=== PATIENT | male | born 1970 | race Caucasian/White ===

== ENCOUNTER → 2021-01-09 12:46 | Outpatient (REF) | payer MEDICAID, SELFPAY ==
--- NOTE | 2021-01-09 13:20 | CA_ITS ---
Transthoracic Echocardiogram Patient (Last, First, Middle): Yan Chi, Gender: Male Date of : 1970 Age: 50 Procedure Date: 01/09/2021 Procedure Type: Transthoracic Echocardiogram Location: OP Height: 172.72 cm Weight: 58.97 kg BSA: 1.70 m2 Heart Rate: bpm BP: 118 / 70 mmHg Sawsmith: HI Borden MD: Rachelle Smith DO Furnace Feeder: Juan Mayfield MD Symptoms: CHEST PAIN Study Quality: Good ECG Rhythm: Sinus Conclusions: - Normal study Findings Left Ventricle Normal left ventricular size, thickness, and systolic function. The visually estimated ejection fraction is between 60-65%. Spectral Doppler is indicative of a normal filling pattern. Peak global endocardial longitudinal strain is -17.7% which is within normal limits Right Ventricle Normal right ventricular cavity size and systolic function. Atria Both atria are normal in size. There is no evidence of interatrial shunt. Aortic Valve Normal aortic valve structure and function. There is no aortic valve stenosis. There is no aortic valve regurgitation. Mitral Valve Normal mitral valve structure and function. There is trace mitral valve regurgitation. There is no mitral valve stenosis. Pulmonic Valve The pulmonic valve is likely normal. Tricuspid Valve Normal tricuspid valve structure. There is trace tricuspid valve regurgitation. The right ventricular systolic pressure is normal. The right ventricular systolic pressure is 20 mmHg. Normal right atrial pressure. There is no evidence of pulmonary hypertension. Great Vessels All visible segments of the aorta are normal in size. The pulmonary artery was not well visualized. Venous The inferior vena cava is normal in size and collapses greater than 50% with inspiration. Pericardium/Pleural There is no evidence of pericardial effusion. Measurements 2D Linear Measurements IVSd: 0.92 0.6-0.9/0.6-1.0 cm LVIDd: 4.57 3.9-5.3/4.2-5.9 cm LVIDd Index: 2.69 2.4-3.2/2.2-3.1 cm/m2 LVIDs: 3.03 2.0-3.6 cm LVPWd: 0.76 0.7-1.1 cm Ao Root: 3.40 2.1-3.5 cm LA Diam: 3.00 2.7-3.8/3.0-4.0 cm LAIDs Index: 1.76 1.5-2.3 cm/m2 LV Mass: 154.40 67-162/88-224 g LV Mass Index: 90.82 43-95/49-115 g/m2 LVOT Diam: 2.20 3.0+(-)1.3 cm 2D Systolic Function EF 4C: 57.10 >55% EF 2C: 58.30 >55% EF BiP: 57.80 >55% Mitral Valve MV Pk E: 0.76 MV PK A: 0.54 MV Decel Time: 296.00 E/A: 1.40 E'Lateral: 12.80 E'Medial: 10.30 E/E' Med: 7.40 E/E' Lat: 6.00 PHT: 87.00 MVA PHT: 2.53 Decel Drew: 2.57 Aortic Valve AoV Pk Ryan: 1.23 AoV Mn Ryan: 0.83 AoV VTI: 0.27 AoV Pk Grad: 6.00 Aov Mn Grad: 3.00 WILFRED Cont.VTI: 3.02 LVOT LVOT Pk Ryan: 1.01 LVOT Mn Ryan: 0.70 LVOT VTI: 0.21 LVOT Pk Grad: 4.00 LVOT Mn Grad: 2.00 LVOT Diam: 2.20 LVOT Area: 3.80 Diastolic Function MV Pk E: 0.76 MV Pk A: 0.54 E/A: 1.40 E'Medial: 10.30 E/E' Med: 7.40 E' Laterial: 12.80 E/E' Lat: 6.00 Right Ventricle TAPSE (mm): 2.42 TVS' Ryan: 11.40 Tricuspid Valve TR Pk Ryan: 2.08 TR Pk Grad: 17.00 RA Press: 3.00 RVSP: 20.00 Great Vessels Aorta Ao Root-2D: 3.40 2.0-3.7 cm Ao Asc: 2.80 2.1-3.4 cm Ao Arch: 2.90 Updated in Other Vendor System with Status of Final Juan Mayfield MD electronically signed on 01/10/2021 6:12:27 PM with status of Final
== END ==
LOC: HO.CARD 12:46
PROVIDERS: PCP Family Medicine; Visit Provider Family Medicine
DX: R07.9 Chest pain, unspecified (principal); F17.200 Nicotine dependence, unspecified, uncomplicated
CPT/HCPCS: 93306

== ENCOUNTER → 2021-01-17 14:43 | Outpatient (BNVA) | payer MEDICAID, SELFPAY | PROVIDERS: PCP Family Medicine; Referring Provider Family Medicine; Visit Provider Internal Medicine Cardiovascular Disease | DX: R07.89 Other chest pain (principal) | CPT/HCPCS: 93005; 99202 ==

== ENCOUNTER 2021-01-19 11:30 | Emergency (ER) | payer MEDICAID, SELFPAY ==
--- NOTE | ~2021-01-19 | CT_ITS ---
EXAMINATION: CT ABDOMEN AND PELVIS WITHOUT CONTRAST CLINICAL INFORMATION: Renal colic. COMPARISON: CT scan of the abdomen and pelvis dated 07/29/2012. Abdominal ultrasound dated 06/28/2018 TECHNIQUE: Multidetector volumetric imaging was performed from the superior aspect of the liver through the pubic symphysis. Sagittal and coronal reformatted images were obtained on the technologist's workstation. This CT examination was performed using dose optimization techniques as appropriate, variously including the following: *Automated exposure control *Adjustment of mA and/or kV according to patient size (this includes techniques or standardized protocols for targeted exams where dose is matched to indication/reason for exam; i.e. extremities or head) *Use of iterative reconstruction technique DLP: 373 mGy-cm FINDINGS: LUNG BASES: The visualized lung bases are unremarkable. LIVER, GALLBLADDER, AND BILIARY TREE: The liver is normal in size, shape, and attenuation. There is a tiny calcified granuloma seen in subcapsular segment 4A of the liver, unchanged. No suspicious focal hepatic lesion or biliary ductal dilatation is present. The gallbladder is unremarkable with no evidence of radiopaque gallstones, gallbladder wall thickening, or obvious pericholecystic inflammatory changes. PANCREAS: Unremarkable. SPLEEN: Unremarkable. ADRENAL GLANDS: Unremarkable. KIDNEYS AND URETERS: The kidneys are normal in size, shape, and attenuation. As noted previously, there are at least 5 punctate 1 to 2 mm nonobstructing calcifications in the kidneys bilaterally with pixel attenuation values extending up to 114 Hounsfield units, similar to the previous exam. There is redevelopment of moderate hydronephrosis in the mid and lower left kidney with dilatation of the collecting system and hyperdense contents (attenuation values extending up to 57 Hounsfield units) seen, suspicious for hemorrhage into the collecting system. The appearance is now similar to an older study from 07/11/2012. Given the waxing and waning nature of these findings, other processes, such as hyperdense urothelial masses are felt to be less likely. The ureters bilaterally are decompressed and no ureteral calculi are seen. BLADDER: Unremarkable. GASTROINTESTINAL TRACT: Moderate sigmoid colonic diverticulosis. No evidence of acute diverticulitis. Small and large bowel loops decompressed. The appendix is unremarkable. ABDOMINAL WALL: No significant hernia is appreciated. LYMPH NODES: Normal. VASCULAR: Abdominal aorta normal in caliber with minimal atherosclerotic calcification seen.. PELVIC VISCERA: Prostate gland is enlarged and heterogeneous and impresses upon the bladder base. Seminal vesicles bilaterally are also symmetrically prominent. OSSEOUS STRUCTURES: Unremarkable. CT/CT abdomen pelvis wo con IMPRESSION: 1. Redevelopment of masslike hypodensities within the dilated mid and lower pole left renal collecting system. The appearance is similar to 2013 and raises the suspicion of intermittent hemorrhage into the collecting system. Close correlation with patient's history is requested. Urology evaluation with retrograde assessment of the upper tracts is recommended. 2. Multiple bilateral nonobstructing renal calculi. 3. Moderate sigmoid colonic diverticulosis. 4. Enlarged heterogeneous prostate gland.
[2021-01-19 11:51] VITALS: BP 114/71; PULSE 96; RESP 17; TEMP 36.8; O2SAT 99; BMI 21.2
--- NOTE | 2021-01-19 12:08 | ED.ABDPAIN ---
HPI - Abdominal Pain General Chief Complaint: Abdominal Pain Stated Complaint: constipation, urine dicoloration Time Seen by Provider: 01/19/21 12:04 Source: patient Mode of arrival: ambulatory Limitations: no limitations History of Present Illness HPI narrative: This is a 50 years old male presented to the emergency department with a chief complaint of abdominal pain and constipation MD elicited complaint: abdominal pain and other (contispaion) Pertinent past history: constipation Onset (ago): day(s) (3) Pain Consistency: constant Location: diffuse Quality: cramping Radiation: none Migration to: no migration Exacerbating factors: nothing Related Data Home Medications Medication Instructions Recorded Confirmed baclofen 10 mg tablet 10 mg PO BID 01/17/21 01/17/21 bupropion HCl 150 mg 24 hr tablet, 150 mg PO BEDTIME 01/17/21 01/17/21 extended release fluoxetine 40 mg capsule 40 mg PO BEDTIME 01/17/21 01/17/21 fluticasone propionate 50 spray INTRANASAL 01/17/21 01/17/21 mcg/actuation nasal spray,suspension risperidone 3 mg tablet 3 mg PO BEDTIME 01/17/21 01/17/21 Previous Rx's Medication Instructions Recorded docusate sodium 100 mg capsule 100 mg PO BID #30 cap 01/19/21 (Colace) oxycodone-acetaminophen 5 mg-325 1 tab PO TID PRN #10 tab 01/19/21 mg tablet (Percocet) Allergies Allergy/AdvReac Type Severity Reaction Status Date / Time No Known Allergies Allergy Verified 01/19/21 11:50 Review of Systems Review of Systems Yes all other systems are reviewed and are negative Constitutional: Reports no additional constitutional complaints Reports system reviewed and no additional complaints, except as documented Cardiovascular: Reports no additional cardiovascular complaints Gastrointestinal: Denies diarrhea Physical Exam Vital Signs: Vital Signs: Last Vital Signs Temp 98.2 F 01/19/21 11:51 Pulse 96 01/19/21 11:51 Resp 17 01/19/21 11:51 BP 114/71 01/19/21 11:51 Pulse Ox 99 01/19/21 11:51 Body Mass Index 21.2 Const: General: cooperative and anxious HENMT: Head: Yes normal to inspection Face and sinus: Yes normal facial exam Mouth: Normal oral and palatal mucosa present Throat: Yes posterior oropharynx normal Neck: Neck: Yes normal visual inspection and Yes full ROM Chest: Chest palpation & inspection: normal inspection of the chest and normal palpation of entire chest wall Resp: Effort & Inspection: normal respiratory effort Auscultation: clear to auscultation bilaterally Cardio: Jugular venous distension: no JVD Rate: regular rate Rhythm: regular rhythm GI: Inspection: Yes normal to inspection Palpation (GI): Soft to palpation, not firm and nontender Course Course Course Narrative: feeling better;ct scan mass like hypodensity left renal collecting system and multiple bilateral non obstructive stone Urine showed hematuria. We will d/c the pt with Urologist referral,he understand the importnce of follow up . I will give him 10 percocet as well for pain colace for constipation MDM - Abdominal Pain Lab Data Result diagrams: 01/19/21 12:04 01/19/21 12:04 Labs: Lab Results 01/19/21 01/19/21 01/19/21 Range/Units 12:04 12:04 12:55 WBC 7.6 (4.8-10.8) X10*3/uL RBC 5.02 (4.60-5.80) X10*6/uL Hgb 16.2 (14.0-18.0) g/dl Hct 48.6 (42-52) % MCV 96.8 (80-98) fL MCH 32.3 (27.0-33.0) pg MCHC 33.3 (31.0-36.0) g/dl RDW 12.0 (11.0-16.0) % Plt Count 290 (160-400) X10*3/uL MPV 9.3 L (9.4-12.4) fL Immature Gran % (Auto) 0.3 (0.0-0.4) % Neut % (Auto) 69.4 (45-73) % Lymph % (Auto) 13.9 L (20-40) % [place] % (Auto) 13.2 H (2-11) % Eos % (Auto) 1.8 (0-4) % Baso % (Auto) 1.4 (0-2) % Lymph # (Auto) 1.1 L (1.2-4.9) X10*3/uL [place] # (Auto) 1.0 (0.1-1.2) X10*3/uL Eos # (Auto) 0.1 (0.0-0.4) X10*3/uL Baso # (Auto) 0.1 (0.0-0.2) X10*3/uL Abs Immat Gran (auto) 0.02 (0.00-0.03) X10*3/uL Absolute Neuts (auto) 5.3 (2.0-8.3) X10*3/uL Absolute Nucleated RBC 0.000 (0.0-0.012) X10*3/uL Nucleated RBC % (auto) 0.0 (0.0-0.2) /100WBC Sodium 135 (135-145) mmol/L Potassium 5.2 H (3.3-5.1) mmol/L Chloride 104 (96-108) mmol/L Carbon Dioxide 22 (22-29) mmol/L Anion Gap 14 (12-20) BUN 9 (9-16) mg/dL Creatinine 1.01 (0.5-1.4) mg/dL Estim Creat Clear Calc 76.8 Estimated GFR > 60 Random Glucose 87 (60-115) mg/dL Calcium 9.3 (8.4-10.2) mg/dL Total Bilirubin 1.2 H (0.0-1.0) mg/dL AST 14 (5-37) U/L ALT 10 (0-40) U/L Alkaline Phosphatase 67 (39-117) U/L Total Protein 7.4 (6.5-8.0) g/dL Albumin 4.2 (3.5-5.0) g/dL Lipase 9 (8-78) U/L Urine Color YELLOW Urine Appearance HAZY Urine pH 6.5 (5.0-8.0) Ur Specific Sharon <= 1.005 (1.005-1.025) Urine Protein NEG (NEG-TRACE) MG/DL Urine Glucose (UA) NEG (NEG) MG/DL Urine Ketones NEG (NEG) MG/DL Urine Blood 3+ H (NEG) Urine Nitrite NEG (NEG) Ur Leukocyte Esterase NEG (NEG) Urine RBC 30-49 H (0) /HPF Urine WBC 0-2 (0-4) /HPF Ur Squamous Epith Cells TRACE /LPF Urine Bacteria NONE /LPF Imaging Data CT scan - abdomen: Radiologist's impression: GASTROINTESTINAL TRACT: Moderate sigmoid colonic diverticulosis. No evidence of acute diverticulitis. Small and large bowel loops decompressed. The appendix is unremarkable.? ABDOMINAL WALL: No significant hernia is appreciated.? LYMPH NODES: Normal. VASCULAR: Abdominal aorta normal in caliber with minimal atherosclerotic calcification seen.. PELVIC VISCERA: Prostate gland is enlarged and heterogeneous and impresses upon the bladder base. Seminal vesicles bilaterally are also symmetrically prominent.? OSSEOUS STRUCTURES: Unremarkable.? CT/CT abdomen pelvis wo con IMPRESSION: 1.? Redevelopment of masslike hypodensities within the dilated mid and lower pole left renal collecting system. The appearance is similar to 2013 and raises the suspicion of intermittent hemorrhage into the collecting system. Close correlation with patient's history is requested. Urology evaluation with retrograde assessment of the upper tracts is recommended. 2.? Multiple bilateral nonobstructing renal calculi. 3.? Moderate sigmoid colonic diverticulosis. 4.? Enlarged heterogeneous prostate gland. Discharge Plan Discharge Clinical Impression: Hematuria, Abdominal pain Patient Disposition: Home, Self-Care Instructions: Hematuria (ED) Additional Instructions: You need to follow-up with the urologist please call Thursday, the CT scan shows mass like lesion in the left renal collecting system and also urine showed blood, for this reason is very important that you follow-up with the urologist Prescriptions: New oxycodone-acetaminophen [Percocet] 5-325 mg tablet 1 tab PO TID PRN (Reason: pain) Qty: 10 RF: 0 docusate sodium [Colace] 100 mg capsule 100 mg PO BID Qty: 30 RF: 0 No Action bupropion HCl 150 mg tablet extended release 24 hr 150 mg PO BEDTIME RF: 0 risperidone 3 mg tablet 3 mg PO BEDTIME RF: 0 fluoxetine 40 mg capsule 40 mg PO BEDTIME RF: 0 fluticasone propionate 50 mcg/actuation spray,suspension intranasal RF: 0 baclofen 10 mg tablet 10 mg PO BID RF: 0 Referrals: Emeka Salmeron MD [Physician] - 2 days Interventions: ED Discharge Assessment Last Done: 01/19/21 14:34 Discharge Date/Time: 01/19/21 14:36 [facility] Past Medical History Source: unable to obtain Surgical History Hx of elbow surgery Family History Family History Father Prostate cancer Mother Cancer Social History Social History Advance Directives: No Advance Directives Information Provided: Yes
[2021-01-19 12:43] LABS: MANUAL DIFF FLAG NO
[2021-01-19 12:46] LABS: Basophils Absolute Auto 0.1 X10*3/uL (0.0-0.2); Basophils Percent Auto 1.4 % (0-2); Eosinophils Absolute Auto 0.1 X10*3/uL (0.0-0.4); Eosinophils Percent Auto 1.8 % (0-4); Hematocrit 48.6 % (42-52); Hemoglobin 16.2 g/dl (14.0-18.0); Imm Gran Abs Auto 0.02 X10*3/uL (0.00-0.03); Imm Gran Pct Auto 0.3 % (0.0-0.4); Lymphocytes Absolute Auto 1.1 X10*3/uL (1.2-4.9); Lymphocytes Percent Auto 13.9 % (20-40); Mean Corpuscular HGB Conc 33.3 g/dl (31.0-36.0); Mean Corpuscular Hemoglobin 32.3 pg (27.0-33.0); Mean Corpuscular Volume 96.8 fL (80-98); Mean Platelet Volume 9.3 fL (9.4-12.4); Monocytes Percent Auto 13.2 % (2-11); Neutrophils Absolute Auto 5.3 X10*3/uL (2.0-8.3); Neutrophils Percent Auto 69.4 % (45-73); Platelet Count 290 X10*3/uL (160-400); Red Blood Count 5.02 X10*6/uL (4.60-5.80); White Blood Count 7.6 X10*3/uL (4.8-10.8)
[2021-01-19 13:08] LABS: Appearance Urine HAZY; Color Urine YELLOW; Glucose Urine UA NEG (NEG); Leukocyte Esterase Urine NEG (NEG); Nitrite Urine NEG (NEG); PH 6.5 (5.0-8.0); Specific Gravity - Urine <= 1.005 (1.005-1.025); UACC Culture Trigger NO; Urine Blood 3+ (NEG); Urine Ketones NEG (NEG); Urine Protein NEG (NEG-TRACE)
[2021-01-19 13:22] LABS: RBC Urine 30-49 /HPF (0); Squamous Epithelial Cell Urine TRACE /LPF; WBC Urine 0-2 /HPF (0-4)
[2021-01-19 13:38] LABS: Alanine Aminotransferase 10 U/L (0-40); Albumin Level 4.2 g/dL (3.5-5.0); Alkaline Phosphatase 67 U/L (39-117); Anion Gap 14 (12-20); Aspartate Amino Transferase 14 U/L (5-37); Bilirubin Total 1.2 mg/dL (0.0-1.0); Blood Urea Nitrogen 9 mg/dL (9-16); Calcium 9.3 mg/dL (8.4-10.2); Carbon Dioxide 22 mmol/L (22-29); Chloride 104 mmol/L (96-108); Creatinine Clr Calc Pharmacy 76.8; Estimated Glomerular Filt Rate > 60; Glucose Random 87 mg/dL (60-115); Lipase 9 U/L (8-78); Potassium 5.2 mmol/L (3.3-5.1); Sodium 135 mmol/L (135-145); Total Protein 7.4 g/dL (6.5-8.0)
== END 2021-01-19 14:36 | disposition home or self-care (01) ==
PROVIDERS: Emergency Provider Emergency Medicine; PCP Family Medicine
DX: R31.9 Hematuria, unspecified (principal); R10.9 Unspecified abdominal pain; Z79.899 Other long term (current) drug therapy
CPT/HCPCS: 36415; 74176; 80053; 81001; 83690; 85025; 99284

== ENCOUNTER → 2021-01-25 14:18 | Outpatient (BNVA) | payer MEDICAID, SELFPAY | PROVIDERS: PCP Family Medicine; Visit Provider Urology | DX: R31.0 Gross hematuria (principal); Q27.34 Arteriovenous malformation of renal vessel | CPT/HCPCS: 99202 ==

== ENCOUNTER → 2021-03-19 12:29 | Outpatient (BNVA) | payer MEDICAID, SELFPAY | PROVIDERS: PCP Family Medicine; Visit Provider Urology | DX: R31.0 Gross hematuria (principal); Q27.34 Arteriovenous malformation of renal vessel | CPT/HCPCS: 99212 ==

== ENCOUNTER → 2021-05-17 09:39 | Outpatient (REF) | payer MEDICAID, SELFPAY ==
--- NOTE | 2021-05-17 09:42 | CA_ITS ---
Acquisition Time: 2021-05-17 09:50:51 Total Exercise Time: 00:07:40 Test Indications: CP, SOB Medications: SEE CHART Protocol: PRABHAKAR Max HR: 150 BPM 89% of Pred: 168 BPM Max BP: 158/062 mmHG Max Work Load: 9.5 METS Exercise stress test with exercise 7 min 40 sec of Prabhakar protocol, with mild to moderate sob, no chest discomfort, with isolated PAC, with normotensive response to exercise, without EKG changes meeting criteria for ischemia. Test reviewed with Dr Mayfield. Referred By: Juan Mayfield Overread By: NIDA BERUMEN
== END ==
LOC: HO.CARD 09:39
PROVIDERS: PCP Family Medicine; Visit Provider Internal Medicine Cardiovascular Disease
DX: R07.89 Other chest pain (principal)
CPT/HCPCS: 93017

== ENCOUNTER → 2021-06-25 11:14 | Outpatient (BNVA) | payer MEDICAID, SELFPAY | PROVIDERS: PCP Family Medicine; Visit Provider Urology | DX: Q27.34 Arteriovenous malformation of renal vessel (principal) | CPT/HCPCS: Q3014 ==

== ENCOUNTER → 2021-08-07 11:29 | Outpatient (BNVA) | payer MEDICAID, SELFPAY | PROVIDERS: PCP Family Medicine; Visit Provider Urology | DX: Z13.89 Encounter for screening for other disorder (principal) ==

== ENCOUNTER 2021-08-12 07:55 | Day surgery (SDC) | payer MEDICAID, SELFPAY ==
--- NOTE | 2021-08-09 10:18 | HO.ANESPROP2 ---
Documented by User: Mona Schneider NP 08/09/21 10:22 HPI - Anesthesia Eval Consult details Narrative: 50yo M for Cystoscopy, Ureteroroscopy, Retro, Laserwith possible stent Cardiac w/u for atypical chest pain 02/2021 negative. Likely musculoskeletal per Dr Mayfield [facility] [place] Active Problems Active Problems: All Active Problems (Updated 08/06/21 @ 13:21 by Kelsi Zavala, RN) Gross hematuria (Acute) Arteriovenous malformation of kidney (Acute) Past Medical History Medical History Atypical chest pain Back pain Bipolar disorder Depression GERD (gastroesophageal reflux disease) History of heroin abuse Hx of hepatitis C Smoker Family History Family History Father Prostate cancer Mother Cancer Surgical History Surgical History History of colonoscopy Hx of elbow surgery Hx of esophagogastroduodenoscopy Social History Social History Patient Tobacco Use Status: Current everyday Tobacco user Meds Allergies Allergy/AdvReac Type Severity Reaction Status Date / Time No Known Allergies Allergy Verified 08/07/21 11:34 Home Medications Medication Instructions Recorded Confirmed Last Taken Type baclofen 10 mg tablet 10 mg PO BID 01/17/21 08/06/21 Unknown History bupropion HCl 150 mg 24 hr tablet, 150 mg PO BEDTIME 01/17/21 08/06/21 Unknown History extended release fluoxetine 40 mg capsule 40 mg PO BEDTIME 01/17/21 08/06/21 Unknown History fluticasone propionate 50 spray INTRANASAL 01/17/21 01/17/21 Unknown History mcg/actuation nasal spray,suspension risperidone 3 mg tablet 3 mg PO BEDTIME 01/17/21 08/06/21 Unknown History famotidine 20 mg tablet 20 mg PO BID 06/25/21 08/06/21 Unknown History albuterol sulfate 90 mcg/actuation 2 puff INHALATION Q4-6H PRN 08/06/21 08/06/21 Unknown History aerosol inhaler (ProAir HFA) Exam Exam Date and Time: August 09, 2021 1018 Pertinent Lab Results Pertinent Lab Results: Laboratory Tests 01/19/21 01/19/21 12:04 12:04 WBC 7.6 Hgb 16.2 Hct 48.6 Plt Count 290 Sodium 135 Potassium 5.2 H Chloride 104 Carbon Dioxide 22 BUN 9 Creatinine 1.01 Narrative Narrative: EKG 02/2021 normal sinus rhythm with early repolarization otherwise normal EKG ECHO 12/2020 Conclusions: - Normal study ? Exercise Stress 04/2021 Protocol: [place] ? Max HR: 150 BPM? 89% of? Pred: 168 BPM Max BP: 158/062 mmHG Max Work Load: 9.5 METS ? Exercise stress test with exercise 7 min 40 sec of [place] protocol, with mild to moderate sob, no chest discomfort, with isolated PAC, with normotensive ?response to exercise, without EKG changes meeting criteria for ischemia. Test ?reviewed with Dr Mayfield. Assessment and Plan Assessment Anesthesia Assessment: Chart Reviewed Documented by User: Jesse Chaidez MD 08/12/21 16:51 PMFSH Past Medical History Medical History Atypical chest pain Back pain Bipolar disorder Depression GERD (gastroesophageal reflux disease) History of heroin abuse Hx of hepatitis C Smoker Family History Family History Father Prostate cancer Mother Cancer Family history of problems with anesthesia: No Surgical History Surgical History History of colonoscopy Hx of elbow surgery Hx of esophagogastroduodenoscopy History of Problems with Anesthesia: No Social History Social History Patient Tobacco Use Status: Current everyday Tobacco user Meds Allergies Allergy/AdvReac Type Severity Reaction Status Date / Time No Known Allergies Allergy Verified 08/07/21 11:34 Home Medications Medication Instructions Recorded Confirmed Last Taken Type baclofen 10 mg tablet 10 mg PO BID 01/17/21 08/06/21 Unknown History bupropion HCl 150 mg 24 hr tablet, 150 mg PO BEDTIME 01/17/21 08/06/21 Unknown History extended release fluoxetine 40 mg capsule 40 mg PO BEDTIME 01/17/21 08/06/21 Unknown History fluticasone propionate 50 spray INTRANASAL 01/17/21 01/17/21 Unknown History mcg/actuation nasal spray,suspension risperidone 3 mg tablet 3 mg PO BEDTIME 01/17/21 08/06/21 Unknown History famotidine 20 mg tablet 20 mg PO BID 06/25/21 08/06/21 Unknown History albuterol sulfate 90 mcg/actuation 2 puff INHALATION Q4-6H PRN 08/06/21 08/06/21 Unknown History aerosol inhaler (ProAir HFA) Exam Airway Mallampati Class: II TM Dist: >3cm Neck ROM: Full Loose/Missing/Broken Teeth: Yes (Multiple chipped , poor dentation ) Heart: S1 , S2 Lungs: b/l breath sounds Assessment and Plan Assessment Anesthesia Assessment: Anesthesia Plan Discussed Final Anesthetic Review Family History of Problems with Anesthesia: No History of Problems with Anesthesia: No NPO: Yes ASA Class: II Final Preanesthetic Review: Meds/Allgs Chart Reviewed, Consent Obtained/Reviewed and Anes Risks/Benef Reviewed Patient Risk: Intermediate Procedure Risk: Intermediate Anesthetic Plan Anesthetic Plan: GA Disposition: Standard PACU
[2021-08-12] VITALS (9 sets, daily range): BP systolic 95–134; BP diastolic 58–82; PULSE 72–84; RESP 14–18; TEMP 36.1–36.6; O2SAT 96–100; BMI 22.2
--- NOTE | ~2021-08-12 | FL_ITS ---
EXAMINATION: XR FLUOROSCOPY WITH IMAGES CLINICAL INFORMATION: Fluoroscopy and spot film during left retrograde and stent placement. COMPARISON: CT abdomen/pelvis 01/19/2021. TECHNIQUE: Fluoroscopy performed by Dr. Emeka Salmeron. Fluoroscopy time: 51.1 seconds DAP: 8.26 mGy Images: 1 FINDINGS: A single image shows the upper portion of a left ureteral stent. No contrast is present in the collecting system. FL/FL guidance in OR IMPRESSION: Fluoroscopy and a single spot film provided to Dr. Salmeron. Please see the operative report for complete details.
[2021-08-12] MEDS: Lactated Ringers 1,000 ML 100 ML IVCONT (09:28)
--- NOTE | 2021-08-12 11:22 | P.HPSUR_ITS ---
Pre-Procedural Eval Section A Date of Service: 08/12/21 The patient is an INPATIENT: No Changes since office visit: No Cold of Flu in the past 2 weeks, No New Medical Problems, No Changes in Medication and No Patient answered all questions The History & Physical has been completed within 30 days and I have reviewed it.: Yes Section B Chief Complaint: kidney stone Details of Present Illness: left recurrent hydronephrosis Relevant Family History (Specify if Yes): No Relevant Social History: None Present Medications: see Short Stay Collaborative assessment Medical History: No relevant PMH History of Previous Operations: No relevant previous surgery Allergies: Allergies Allergy/AdvReac Type Severity Reaction Status Date / Time No Known Allergies Allergy Verified 08/07/21 11:34 Review of Systems Sugical H&P ROS: Negative: Constitution, Cardiovascular, Respiratory, Neurological, Psychiatric, Hem-Onc, Allergic/Immunologic, Gastrointestinal, Genitourinary, Musculoskeletal, Integumentary, Endocrine and Eyes/Ears/Nose/Throat Exam Surgical H&P Exam: Normal: HEENT, Normal: Heart, Normal: Lungs, Normal: Extrem ities, Normal: Abdomen, Normal: Skin and Normal: Neurological Plan Diagnosis/Plan: Unchanged ( Left retrograde with diagnostic ureteroscopy) I have reviewed the history and physical and performed a pertinent physical examination on my patient. No changes have occurred unless specified.
--- NOTE | 2021-08-12 12:43 | P.OP_ITS ---
Operative Note Operative Note Date of Service: 08/12/21 Narrative: PreOperative Diagnosis: left hematuria Post Operative Diagnosis: left nephrolithiasis Procedure: - cystoscopy, left retrograde - left dilatation of ureteric orifice under fluoroscopy - left ureteroscopy, laser lithotripsy, stone basketing - left stent placement Surgeon: Dr Emeka Salmeron Anesthesia: General Indications for procedure: hematuria Procedure: After informed consent was verified patient was brought to the operating placed in supine position. Anesthesia was administered per protocol. Patient was placed in modified dorsal lithotomy position and prepped and draped in a sterile fashion. Safety pause time-out and side of surgery confirmed. Antibiotics confirmed. 22 Croatian cystoscope was inserted per urethra. Bladder was normal in its entirety. Both ureteric orifices were in normal position. The ureteric orifice was cannulated and a retrograde examination was performed. No filling defect on the left side. A Sensor guidewire was placed up to the level of the renal pelvis under fluoroscopy. The rigid cystoscope was removed and the inner cannula of ureteric access sheath was used under fluoroscopy to dilate the ureteric orifice. The ureteric access sheath was placed and the inner cannula with access wire removed. The digital flexible ureteral scope was placed. Small stones found in the calyces. 272 nm laser used for stones. A 6 Croatian by 26 cm double-J stent was placed into the renal pelvis and bladder under a combination of fluoroscopy and direct visualization. The bladder was emptied. The patient tolerated the procedure well and was extubated in the operating room, and transferred in stable condition to the recovery area. Pathology: none Drains: 6 fr by 26cm double J
[2021-08-12] MEDS: Phenazopyridine HCL 100 MG TABLET PO (13:19)
[2021-08-12] MEDS: Acetaminophen 325 MG TABLET 650 MG PO (13:19)
[2021-08-12] MEDS: oxyCODONE HCl Immed Release 5 MG TABLET PO (13:23)
== END 2021-08-12 15:18 | disposition home or self-care (01) ==
PROVIDERS: PCP Family Medicine; Visit Provider Urology
PROC: (CPT 52356; principal; 2021-08-12 12:30)
DX: N20.0 Calculus of kidney (principal); N13.30 Unspecified hydronephrosis; R31.9 Hematuria, unspecified; Q27.34 Arteriovenous malformation of renal vessel; F31.9 Bipolar disorder, unspecified; K21.9 Gastro-esophageal reflux disease without esophagitis; Z79.899 Other long term (current) drug therapy; Z86.19 Personal history of other infectious and parasitic diseases; F17.200 Nicotine dependence, unspecified, uncomplicated; F11.11 Opioid abuse, in remission
CPT/HCPCS: 52356; 52352; C1758; C1769; C1894; C2617; J1100; J1956; J2250; J2405; J3010; Q9967

== ENCOUNTER → 2021-08-20 08:52 | Outpatient (BNVA) | payer MEDICAID, SELFPAY | PROVIDERS: PCP Family Medicine; Visit Provider Urology | DX: Z13.89 Encounter for screening for other disorder (principal) | CPT/HCPCS: 52310 ==

== ENCOUNTER 2021-09-02 13:07 | Day surgery (SDC) | payer MEDICAID, SELFPAY ==
[2021-09-02 13:59] VITALS: BP 119/56; RESP 18; TEMP 36.6; O2SAT 98; BMI 20.9
[2021-09-02 14:15] LABS: Amphetamine Screen Urine Not Detected (Not Detect); Barbiturates, Urine Not Detected (Not Detect); Benzodiazepines Screen Urine Not Detected (Not Detect); Cannabinoid Screen Urine Not Detected (Not Detect); Cocaine Screen Urine Not Detected (Not Detect); Fentanyl, urine Not Detected (Not Detect); Opiate Screen Urine Not Detected (Not Detect); Phencyclidine Screen Urine Not Detected (Not Detect)
--- NOTE | 2021-09-02 14:33 | PC.NURSE ---
report to chao bernal pt moved to pacu
--- NOTE | 2021-09-02 15:02 | HO.ANESPROP2 ---
HPI - Anesthesia Eval Consult details Narrative: Removal of left renal stent PMFSH Active Problems Active Problems: All Active Problems (Updated 08/14/21 @ 17:04 by Emeka Salmeron MD) Gross hematuria (Acute) Arteriovenous malformation of kidney (Acute) Nephrolithiasis (Acute) Past Medical History Medical History Atypical chest pain Back pain Bipolar disorder Depression GERD (gastroesophageal reflux disease) History of heroin abuse Hx of hepatitis C Smoker Family History Family History Father Prostate cancer Mother Cancer Family history of problems with anesthesia: No Surgical History Surgical History (Updated 09/02/21 @ 13:45 by Adriana Fortune RN) History of colonoscopy Hx of cystoscopy Hx of elbow surgery Hx of esophagogastroduodenoscopy History of Problems with Anesthesia: No Social History Social History Patient Tobacco Use Status: Current everyday Tobacco user Substance Use Type Other:: 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 Are you DNR?: No Advance Directives: No Advance Directives Information Provided: Yes Meds Allergies Allergy/AdvReac Type Severity Reaction Status Date / Time No Known Allergies Allergy Verified 08/20/21 08:58 Active Medications: Current Medications Lactated Ringer's (Lr) 1,000 mls @ 50 mls/hr IVCONT .Q20H [facility] Home Medications Medication Instructions Recorded Confirmed Last Taken Type baclofen 10 mg tablet 10 mg PO BID 01/17/21 08/06/21 Unknown History fluoxetine 40 mg capsule 40 mg PO BEDTIME 01/17/21 08/06/21 Unknown History fluticasone propionate 50 spray INTRANASAL 01/17/21 01/17/21 Unknown History mcg/actuation nasal spray,suspension risperidone 3 mg tablet 3 mg PO BEDTIME 01/17/21 08/06/21 Unknown History albuterol sulfate 90 mcg/actuation 2 puff INHALATION Q4-6H PRN 08/06/21 08/06/21 Unknown History aerosol inhaler (ProAir HFA) cetirizine 10 mg tablet 10 mg PO DAILY 08/20/21 Unknown History cholecalciferol (vitamin D3) 50 50 mcg PO DAILY 08/20/21 Unknown History mcg (2,000 unit) capsule Exam Exam Date and Time: September 02, 2021 1502 Height,Weight and Vital Signs: Height 5 ft 8 in Weight 62.596 kg Last Vital Signs Temp 97.8 F 09/02/21 13:59 Resp 18 09/02/21 13:59 BP 119/56 L 09/02/21 13:59 Pulse Ox 98 09/02/21 13:59 Pertinent Lab Results Pertinent Lab Results: Laboratory Tests 09/02/21 12:45 Urine Opiates Screen Not Detected Urine Fentanyl Screen Not Detected Ur Barbiturates Screen Not Detected Ur Phencyclidine Scrn Not Detected Ur Amphetamines Screen Not Detected U Benzodiazepines Scrn Not Detected Urine Cocaine Screen Not Detected U Marijuana (THC) Screen Not Detected Airway Mallampati Class: II TM Dist: >3cm Neck ROM: Full Loose/Missing/Broken Teeth: Yes (front upper teeth loose) Heart: rrr+[id number] Lungs: cta b/l Assessment and Plan Assessment Anesthesia Assessment: Anesthesia Plan Discussed and Chart Reviewed Final Anesthetic Review Family History of Problems with Anesthesia: No History of Problems with Anesthesia: No NPO: Yes ASA Class: III Final Preanesthetic Review: No Changes in Pt Med Stat, Meds/Allgs Chart Reviewed, Consent Obtained/Reviewed and Anes Risks/Benef Reviewed Patient Risk: Intermediate Procedure Risk: Low Assessment/Block/Sedation in SS: Assess/Block/Sedation-SS Anesthetic Plan Anesthetic Plan: MAC: and Agree w/ Assess. and Plan Disposition: Standard PACU
[2021-09-02] MEDS: Lactated Ringers 1,000 ML 50 ML IVCONT (15:03)
--- NOTE | 2021-09-02 15:40 | MHC.SHP ---
Pre-Procedural Eval Section A Date of Service: 09/02/21 The patient is an INPATIENT: No Changes since office visit: No Cold of Flu in the past 2 weeks, No New Medical Problems, No Changes in Medication and No Patient answered all questions The History & Physical has been completed within 30 days and I have reviewed it.: Yes Section B Chief Complaint: kidney stone Details of Present Illness: cystoscopy stent Allergies: Allergies Allergy/AdvReac Type Severity Reaction Status Date / Time No Known Allergies Allergy Verified 08/20/21 08:58 Plan I have reviewed the history and physical and performed a pertinent physical examination on my patient. No changes have occurred unless specified.
[2021-09-02] MEDS: levoFLOXacin 500 MG TABLET PO (15:42)
--- NOTE | 2021-09-02 16:06 | W.PM.OPN ---
Operative Note Operative Note Date of Service: 09/02/21 Narrative: PreOperative Diagnosis: indwelling left ureteric stent Post Operative Diagnosis: same Procedure: cystoscopy with removal of left indwelling stent Surgeon: Dr Emeka Salmeron Anesthesia: sedation Indications for procedure: unable to tolerate procedure in office. Procedure performed under sedation. Procedure: After informed consent was verified the patient was brought to the operating room and placed in a supine position. Anesthesia was administered per protocol. patient was prepped in a clean fashion. Flexible cystoscope inserted per urethra. Stent identified and grasped and removed without difficulty. he tolerated the procedure was transferred to the recovery area. Pathology: Drains:
[2021-09-02 16:12] VITALS: BP 102/74; PULSE 98; RESP 12; TEMP 36.3; O2SAT 98
[2021-09-02 16:27] VITALS: BP 115/62; PULSE 71; RESP 18; O2SAT 99
[2021-09-02 16:42] VITALS: BP 98/68; PULSE 90; RESP 16; O2SAT 98
[2021-09-02 16:57] VITALS: BP 108/70; PULSE 71; RESP 16; TEMP 36.1; O2SAT 97
== END 2021-09-02 17:11 | disposition home or self-care (01) ==
PROVIDERS: Anesthesiology; PCP Family Medicine; Visit Provider Urology
PROC: (CPT 52310; principal; 2021-09-02 15:10)
DX: N20.0 Calculus of kidney (principal); Z46.6 Encounter for fitting and adjustment of urinary device; F31.9 Bipolar disorder, unspecified; K21.9 Gastro-esophageal reflux disease without esophagitis; R07.89 Other chest pain; Z86.19 Personal history of other infectious and parasitic diseases; F11.11 Opioid abuse, in remission; F17.210 Nicotine dependence, cigarettes, uncomplicated
CPT/HCPCS: 52310; 80307; J2250

== ENCOUNTER 2021-11-05 08:44 | Outpatient (REF) | payer MEDICAID, SELFPAY ==
--- NOTE | ~2021-11-05 | US_ITS ---
EXAMINATION: US ABDOMEN COMPLETE CLINICAL INFORMATION: Intestinal malabsorption. COMPARISON: CT abdomen and pelvis without contrast dated 01/19/2021. Ultrasound abdomen complete dated 06/28/2018 and 12/23/2013. MR abdomen without and with contrast dated 08/12/2012. TECHNIQUE: Real-time imaging of the abdominal viscera. FINDINGS: PANCREAS: Normal. ABDOMINAL AORTA: The proximal, mid, and distal segments are normal in caliber. INFERIOR VENA CAVA: Visualized portions are normal. LIVER: Normal. The liver is normal in size. The liver contour is normal. Parenchymal echogenicity is normal. No focal hepatic lesion. There is no intrahepatic biliary duct dilatation seen. GALLBLADDER: Normal. The gallbladder is physiologically distended without evidence of stones, sludge, polyps, wall thickening or pericholecystic fluid. COMMON BILE DUCT: Normal in caliber measuring 0.56 cm in diameter. RIGHT KIDNEY: There is a 2 mm stone in the lower pole. No hydronephrosis or focal parenchymal lesions. The kidney measures 11.6 cm in maximum dimension. LEFT KIDNEY: Normal. No hydronephrosis. No renal calculi or focal parenchymal lesions. The kidney measures 10.4 cm in maximum dimension. SPLEEN: Normal. The spleen measures 8.1 cm in maximum dimension. FREE FLUID: None. US/US abdomen complete IMPRESSION: Small right renal stone otherwise unremarkable exam.
== END 2021-11-05 08:45 | disposition home or self-care (01) ==
LOC: HO.US 08:44
PROVIDERS: Visit Provider Family Medicine
DX: K90.9 Intestinal malabsorption, unspecified (principal)
CPT/HCPCS: 76700

== ENCOUNTER 2022-07-04 10:39 | Outpatient (REF) | payer MEDICAID, SELFPAY ==
[2022-07-04 14:25] LABS: Creatinine, mg/dL 116.78
[2022-07-04 14:41] LABS: Creatinine, mg/dL 119.91
[2022-07-04 14:50] LABS: Creatinine, 24Hr Urine 0.9 G/Day (1.0-2.0); Total Volume 24 Hour Urine 750 mL
[2022-07-04 14:52] LABS: Uric Acid, 24 Hr Urine 367.5 mg/Day (250-750)
[2022-07-05 16:53] LABS: Calcium, 24 Hr Urine 63 mg/24 h; Calcium/Creatinine Ratio 73 mg/g creat (30-210); Creatinine 24Hr Urine 0.86 g/24 h (0.50-2.15)
[2022-07-06 23:33] LABS: Prot Elec - Albumin 4.3 g/dL (3.8-4.8); Prot Elec - Alpha1 0.2 g/dL (0.2-0.3); Prot Elec - Alpha2 0.6 g/dL (0.5-0.9); Prot Elec - Beta 1 0.4 g/dL (0.4-0.6); Prot Elec - Beta 2 0.4 g/dL (0.2-0.5); Prot Elec - Gamma 1.1 g/dL (0.8-1.7)
[2022-07-10 06:59] LABS: 24hr Urine Total Volume 750 mL; Citric Acid, 24hr Urine 194 mg/24 h (100-1300); Citric Acid/Creat Ratio 24U 214 mg/g creat (60-660); Creatinine, 24U 0.86 g/24 h (0.50-2.15)
[2022-07-10 08:29] LABS: Oxalic Acid 24 Urine 10.5 mg/24 h (3.6-38.0)
[2022-07-11 11:48] LABS: Anti Nuclear Antibody Screen POSITIVE (NEGATIVE)
== END 2022-07-04 10:40 | disposition home or self-care (01) ==
LOC: HO.10HDL 10:39
PROVIDERS: Visit Provider Internal Medicine Hypertension Specialist
DX: N20.0 Calculus of kidney (principal); R31.9 Hematuria, unspecified
CPT/HCPCS: 36415; 82340; 82507; 83945; 84165; 84300; 84560; 86038; 86039

== ENCOUNTER 2022-10-07 08:25 | Day surgery (SDC) | payer MEDICAID, SELFPAY ==
[2022-10-07 06:12] VITALS: BMI 21.1
[2022-10-07 08:38] VITALS: BP 113/80; PULSE 78; RESP 17; TEMP 36.1; O2SAT 98
[2022-10-07] MEDS: Lactated Ringers 1,000 ML 100 ML IVCONT (09:00)
--- NOTE | 2022-10-07 09:21 | P.CONAN_ITS ---
[facility] Active Problems Active Problems: All Active Problems (Updated 08/14/21 @ 17:04 by Emeka Salmeron MD) Gross hematuria (Acute) Arteriovenous malformation of kidney (Acute) Nephrolithiasis (Acute) Past Medical History Medical History Atypical chest pain Back pain Bipolar disorder Depression GERD (gastroesophageal reflux disease) History of heroin abuse Hx of hepatitis C Smoker Family History Family History Father Prostate cancer Mother Cancer Family history of problems with anesthesia: No Surgical History Surgical History History of colonoscopy Hx of cystoscopy Hx of elbow surgery Hx of esophagogastroduodenoscopy History of Problems with Anesthesia: No Social History Social History Patient Tobacco Use Status: Current everyday Tobacco user Are you DNR?: No Advance Directives: No Advance Directives Information Provided: Yes Meds Allergies Allergy/AdvReac Type Severity Reaction Status Date / Time No Known Allergies Allergy Verified 12/10/21 10:52 Active Medications: Current Medications Lactated Ringer's (Lr) 1,000 mls @ 100 mls/hr IVCONT .Q10H [facility] Last Admin: 10/07/22 09:00 Dose: 100 mls/hr Home Medications Medication Instructions Recorded Confirmed Last Taken Type baclofen 10 mg tablet 10 mg PO BID 01/17/21 08/06/21 Unknown History fluoxetine 40 mg capsule 40 mg PO BEDTIME 01/17/21 08/06/21 Unknown History fluticasone propionate 50 spray intranasal 01/17/21 01/17/21 Unknown History mcg/actuation nasal spray,suspension risperidone 3 mg tablet 3 mg PO BEDTIME 01/17/21 08/06/21 Unknown History albuterol sulfate 90 mcg/actuation 2 puff inhalation Q4-6H PRN 08/06/21 08/06/21 Unknown History aerosol inhaler (ProAir HFA) Wheezing cetirizine 10 mg tablet 10 mg PO DAILY 08/20/21 Unknown History cholecalciferol (vitamin D3) 50 50 mcg PO DAILY 08/20/21 Unknown History mcg (2,000 unit) capsule Exam Exam Date and Time: October 07, 2022 0921 Height,Weight and Vital Signs: Height 5 ft 8 in Weight 63.049 kg Last Vital Signs Temp 97 F 10/07/22 08:38 Pulse 78 10/07/22 08:38 Resp 17 10/07/22 08:38 BP 113/80 10/07/22 08:38 Pulse Ox 98 10/07/22 08:38 O2 Del Method Room Air 10/07/22 08:38 Airway Mallampati Class: II TM Dist: >3cm Neck ROM: Full Assessment and Plan Assessment Anesthesia Assessment: Anesthesia Plan Discussed and Chart Reviewed Final Anesthetic Review Family History of Problems with Anesthesia: No History of Problems with Anesthesia: No NPO: Yes ASA Class: II Final Preanesthetic Review: No Changes in Pt Med Stat, Meds/Allgs Chart Reviewed, Consent Obtained/Reviewed and Anes Risks/Benef Reviewed Patient Risk: Low Procedure Risk: Low Anesthetic Plan Anesthetic Plan: MAC: Disposition: Standard PACU
--- NOTE | 2022-10-07 09:40 | MHC.SHP ---
Pre-Procedural Eval Section A Date of Service: 10/07/22 The patient is an INPATIENT: No Changes since office visit: No Cold of Flu in the past 2 weeks, No New Medical Problems, No Changes in Medication and No Patient answered all questions The History & Physical has been completed within 30 days and I have reviewed it.: Yes Section B Chief Complaint: screening Allergies: Allergies Allergy/AdvReac Type Severity Reaction Status Date / Time No Known Allergies Allergy Verified 12/10/21 10:52 Plan I have reviewed the history and physical and performed a pertinent physical examination on my patient. No changes have occurred unless specified. Time Spent With Patient Time: Total time managing care of this patient today ____ minutes.
[2022-10-07 10:18] VITALS: BP 110/47; PULSE 81; RESP 16; TEMP 36.3; O2SAT 96
--- NOTE | 2022-10-07 10:23 | PM.OP ---
Brief Operative Note Date of Service: 10/07/22 Pre-op diagnosis: screening Post-op diagnosis: same Procedure: colonoscopy Surgeon: Eugenio Hays Anesthesia: MAC Was an Personnel Security Assistant used for this Procedure?: No Estimated blood loss (mL): 0 Pathology: other Condition: stable Disposition: PACU
[2022-10-07 10:33] VITALS: BP 123/82; PULSE 62; RESP 18; TEMP 36.2; O2SAT 98
--- NOTE | 2022-10-07 10:41 | OP_ITS ---
DATE OF SERVICE: 10/07/2022 SURGEON: Eugenio Hays MD INDICATIONS: Colon cancer screening and prior history of adenomatous colon polyps. PREOPERATIVE DIAGNOSIS: POSTOPERATIVE DIAGNOSIS: PROCEDURE PERFORMED: Colonoscopy to the terminal ileum with snare polypectomy. ESTIMATED BLOOD LOSS: COMPLICATIONS: ANESTHESIA: Monitored anesthesia care. ASSISTANTS: SPECIMENS: DESCRIPTION OF PROCEDURE: A history and physical was performed. The risks and benefits of the procedure were explained to the patient and informed consent was obtained. The patient was placed in the left lateral decubitus position. A digital rectal exam was performed and was found to be normal. The Olympus pediatric video colonoscope was introduced into the rectum and advanced to the cecum. The cecum was identified by transillumination, palpation, and identification of ileocecal valve. Examination was performed. The scope was removed. He tolerated the procedure well and was returned to the recovery area in stable condition. FINDINGS: The terminal ileum was examined and appeared normal. The visualized colonic mucosa was normal. The quality of the prep was fair with some undigested food material in the sigmoid, which could not be completely suctioned. This was washed and suctioned as best possible. A single polyp measuring approximately 8 mm was identified at 60 cm and removed with a snare. The polyp was recovered via suction. There was moderate sigmoid diverticulosis and the sigmoid was somewhat tortuous. Retroflexed examination showed internal hemorrhoids. IMPRESSION: Colon polyp. RECOMMENDATION: Follow up the biopsy results. MD ALMA English/NAPOLEONL / [id number]
== END 2022-10-07 10:54 | disposition home or self-care (01) ==
PROVIDERS: PCP Family Medicine; Visit Provider Internal Medicine Gastroenterology
PROC: 0DJD8ZZ Inspection of Lower Intestinal Tract, Via Natural or Artificial Opening Endoscopic (ICD-10-PCS; CPT 45378; principal; 2022-10-07 09:30)
DX: Z12.11 Encounter for screening for malignant neoplasm of colon (principal); K63.5 Polyp of colon; K57.30 Diverticulosis of large intestine without perforation or abscess without bleeding; K63.89 Other specified diseases of intestine; K64.8 Other hemorrhoids; Z86.010 Personal history of colon polyps; K21.9 Gastro-esophageal reflux disease without esophagitis
CPT/HCPCS: 45385; 88305

== ENCOUNTER → 2023-06-05 11:08 | Outpatient (AMB) | payer MEDICAID, SELFPAY ==
--- NOTE | 2023-06-05 11:19 | A.OFFVIS_ITS ---
Intake Intake Visit Reasons: LDCT SD Allergies No Known Allergies Allergy (Verified 12/10/21 10:52) HPI HPI Comments History of Present Illness Details Yan is a pleasant 52 year old male, current smoker with a 33 PYH. Patient has been smoking since age 19 for 33 years at 1 ppd. Denies marijuana use. Denies exposure to chemicals or substances like asbestos. Denies second hand smoke exposure. Reports maternal grandmother, smoker, with lung cancer. Denies personal history of cancers. Denies chest CT in last year. Denies recent travel outside the [place]. Denies testing positive for COVID. Admits receiving COVID Vaccine. Denies fever, chills, chest pain, new cough, hemoptysis or unintentional weight loss. Lung Cancer Screening Questionnaire reviewed with patient by provider. Shared Decision Making Completed. Discussed in detail with patient, the risk versus benefit of LDCT screening. Patient in agreement of proceeding with scan. PFSH Medical History Atypical chest pain Back pain Bipolar disorder Depression GERD (gastroesophageal reflux disease) History of heroin abuse Hx of hepatitis C Smoker Surgical History History of colonoscopy Hx of cystoscopy Hx of elbow surgery Hx of esophagogastroduodenoscopy Family History Father Prostate cancer Mother Cancer Social History Patient Tobacco Use Status: Current everyday Tobacco user Assessment & Plan Assessment & Plan (1) Nicotine dependence, cigarettes, uncomplicated: Code(s): F17.210 - Nicotine dependence, cigarettes, uncomplicated Plan Shared decision-making visit completed today in office. This patient meets criteria for LDCT for lung cancer screening purposes and is asymptomatic. Offered smoking cessation. Patient has been scheduled for a low dose chest CT for screening purposes at [facility]. We discussed how the results will be obtained depending on CT findings. RADS 1 and RADS 2 will receive a letter with results and will follow up for annual LDCT. Patient informed they will be contacted at later date to schedule upcoming LDCT scan. RADS 3 and RADS 4 will receive a telephone call, or an office visit after reviewing case at our Lung Cancer Conference to determine when the next LDCT will be scheduled or further interventions that may be needed. Discussed importance of screening program and compliance with yearly LDCT scan as scheduled. Risks, benefits, and alternatives were discussed in detail and patient agrees to proceed. Risks discussed include but are not limited to: radiation exposure and possibility of additional intervention for benign disease. Benefits include detection of lung cancer at an early stage. A copy of today's visit and LDCT results will be sent to patient's PCP. Incidental findings on LDCT are PCP's responsibility. If there are incidental findings, our office will ensure that PCP office is aware of these findings. All questions were answered and patient is in agreement of plan. Coding Level of Care Code Lung Cancer Screening G0296 Diagnoses Nicotine dependence, cigarettes, uncomplicated F17.210
== END ==
PROVIDERS: PCP Family Medicine; Visit Provider Nurse Practitioner Family
DX: F17.210 Nicotine dependence, cigarettes, uncomplicated (principal)
CPT/HCPCS: G0296

== ENCOUNTER 2023-06-05 11:35 | Outpatient (REF) | payer MEDICAID, SELFPAY ==
--- NOTE | ~2023-06-05 | CT_ITS ---
EXAMINATION: CT CHEST SCREENING CLINICAL INFORMATION: Nicotine dependence. COMPARISON: None available. TECHNIQUE: Multidetector volumetric CT imaging of the chest is performed without contrast using low-dose technique. Additional 2D coronal and sagittal reformatted images and axial 3D maximum intensity projection (MIP) images are generated on the CT workstation. This CT examination was performed using dose optimization techniques as appropriate, variously including the following: *Automated exposure control *Adjustment of mA and/or kV according to patient size (this includes techniques or standardized protocols for targeted exams where dose is matched to indication/reason for exam; i.e. extremities or head) *Use of iterative reconstruction technique DLP: 50 mGy-cm FINDINGS: LUNGS: Emphysematous changes are present with bullous formation most marked at the apices. Biapical pleural-parenchymal scarring is seen, right greater than left. There is a 7 mm left apical ground-glass opacity (5:91). Some other scattered smaller micronodules, none larger than 3 mm, are seen including some areas of inspissated mucus within bronchi. Tran images of all have been saved. MEDIASTINUM: The mediastinum is normal. CORONARY ARTERY CALCIFICATION: None visualized on this study. PLEURA: There is no pleural effusion. No pleural mass or thickening. AXILLA: No lymphadenopathy. UPPER ABDOMEN: Unremarkable. OSSEOUS STRUCTURES: Unremarkable. CT/CT lung screening IMPRESSION: Emphysematous changes. Some small pulmonary micronodules including a 7 mm left apical ground-glass opacity. ASSESSMENT: Lung-RADS category 2: Benign RECOMMENDATION: Routine annual low-dose CT screening in 12 months.
== END 2023-06-05 11:36 | disposition home or self-care (01) ==
LOC: HO.CT 11:35
PROVIDERS: PCP Family Medicine; Visit Provider Nurse Practitioner Family
DX: F17.210 Nicotine dependence, cigarettes, uncomplicated (principal)
CPT/HCPCS: 71271; G0296

== ENCOUNTER 2023-12-11 11:13 | Outpatient (REF) | payer MEDICAID, SELFPAY ==
[2023-12-11 14:05] LABS: Hematocrit 48.6 % (42.0-52.0); Hemoglobin 16.9 g/dl (14.0-18.0); Mean Corpuscular HGB Conc 34.8 g/dl (31.0-36.0); Mean Corpuscular Hemoglobin 31.8 pg (27.0-33.0); Mean Corpuscular Volume 91.5 fL (80.0-98.0); Mean Platelet Volume 9.6 fL (9.4-12.4); Platelet Count 328 X10*3/uL (160-400); Red Blood Count 5.31 X10*6/uL (4.60-5.80); Red Cell Distribution Width 12.5 % (11.0-16.0); White Blood Count 6.3 X10*3/uL (4.8-10.8)
[2023-12-11 14:10] LABS: Estimated Average Glucose 97 mg/dL
[2023-12-11 14:24] LABS: Alanine Aminotransferase 10 U/L (0-40); Albumin Level 4.4 g/dL (3.5-5.0); Alkaline Phosphatase 79 U/L (39-117); Anion Gap 11 (12-20); Aspartate Amino Transferase 13 U/L (5-37); Bilirubin Direct 0.2 mg/dL (0.0-0.5); Bilirubin Total 0.9 mg/dL (0.0-1.0); Blood Urea Nitrogen 13 mg/dL (9-16); Calcium 9.5 mg/dL (8.4-10.2); Carbon Dioxide 24 mmol/L (22-29); Chloride 109 mmol/L (96-108); Cholesterol 156 mg/dL (<200); Estimated Glomerular Filt Rate > 60; Glucose Random 91 mg/dL (60-115); HDL Cholesterol 42 mg/dL (>40); LDL Cholesterol Calculated 103 mg/dL (<100); Potassium 4.2 mmol/L (3.3-5.1); Sodium 140 mmol/L (135-145); Total Protein 7.6 g/dL (6.5-8.0); Triglycerides 55 mg/dL (<150)
[2023-12-11 14:44] LABS: Free T4 (Free Thyroxine) 0.99 ng/dL (0.71-1.85); Thyroid Stimulating Hormone 0.09 uIU/mL (0.32-4.0); Vitamin D 25-OH Total 43.6 ng/mL (>30)
[2023-12-11 15:43] LABS: CT PCR NOT DETECTED (Not Detect.); NG PCR NOT DETECTED (Not Detect.)
[2023-12-14 08:40] LABS: HBS Num1 51.51 mIU/mL (0-7.99); HBsAGNum1 0.32 S/CO (0.00-0.99); HIV AB/AG Nonreactive (Nonreactive); HIV Num 1 0.05 S/CO (0.00-0.99); Hepatitis B Surface Antigen Negative (Negative); ~HepC Num1 12.88 S/CO (0.00-0.79); ~Hepatitis B Surface Antibody REACTIVE (Nonreactive); ~Hepatitis C Antibody Reactive (Nonreactive)
[2023-12-15 23:43] LABS: RPR Rapid Plasma Reagin NON-REACTIVE (NON-REACTIVE)
[2023-12-16 16:24] LABS: HCV Log PCR <1.18 NOT DETECTED Log IU/mL (NOT DETECTED); HepC Viral Load <15 NOT DETECTED IU/mL (NOT DETECTED)
== END 2023-12-11 11:14 | disposition home or self-care (01) ==
LOC: HO.HHCL 11:13
PROVIDERS: Visit Provider Family Medicine
DX: Z00.00 Encounter for general adult medical examination without abnormal findings (principal); N20.0 Calculus of kidney; K90.9 Intestinal malabsorption, unspecified; K21.9 Gastro-esophageal reflux disease without esophagitis; J30.9 Allergic rhinitis, unspecified; F17.200 Nicotine dependence, unspecified, uncomplicated; F39 Unspecified mood [affective] disorder
CPT/HCPCS: 36415; 80048; 80061; 80076; 82306; 83036; 84439; 84443; 85027; 86592; 86706; 86803; 87340; 87389; 87491; 87522; 87591

== ENCOUNTER 2024-01-20 10:52 | Emergency (ER) | payer MEDICAID, SELFPAY ==
--- NOTE | ~2024-01-20 | CT_ITS ---
EXAMINATION: CT ABDOMEN AND PELVIS WITHOUT CONTRAST CLINICAL INFORMATION: Right-sided pain. Extending to the right lower quadrant. COMPARISON: 01/19/2021 TECHNIQUE: Multidetector volumetric imaging was performed from the superior aspect of the liver through the pubic symphysis. Sagittal and coronal reformatted images were obtained on the technologist's workstation. This CT examination was performed using dose optimization techniques as appropriate, variously including the following: *Automated exposure control *Adjustment of mA and/or kV according to patient size (this includes techniques or standardized protocols for targeted exams where dose is matched to indication/reason for exam; i.e. extremities or head) *Use of iterative reconstruction technique DLP: 370 mGy-cm FINDINGS: LUNG BASES: The visualized lung bases are unremarkable. LIVER, GALLBLADDER, AND BILIARY TREE: The liver is enlarged. No focal mass. No intrahepatic biliary dilatation. The gallbladder is unremarkable with no evidence of radiopaque gallstones, gallbladder wall thickening, or obvious pericholecystic inflammatory changes. PANCREAS: Unremarkable. SPLEEN: Unremarkable. ADRENAL GLANDS: Unremarkable. KIDNEYS AND URETERS: Tiny punctate nephroliths both kidneys but no suspicious mass, hydronephrosis or perinephric collection. 3 mm probable hyperdense cyst lower left kidney is observed. BLADDER: Unremarkable. GASTROINTESTINAL TRACT: Normal. There is mural thickening and induration seen in the terminal ileum extending throughout the entire ileum which extends deep into the pelvis. This is suspicious for inflammatory bowel disease such as Crohn's disease. I do not see evidence of perforation or abscess collection or discrete fistula formation. The distal small bowel loops are partly distended suspicious for a partial obstruction on the basis of the narrowing and edematous process at the distal ileum.. The colon appears unremarkable as does the jejunum. Sigmoid diverticular disease incidentally is seen. There is no ascites. ABDOMINAL WALL: No significant hernia is appreciated. LYMPH NODES: Normal. VASCULAR: There are atherosclerotic but nonaneurysmal. PELVIC VISCERA: Prostate and seminal vesicles unremarkable. No ascites deep in the pelvis. OSSEOUS STRUCTURES: Gaseous disc degeneration at the lumbosacral junction. CT/CT abdomen pelvis wo IV con IMPRESSION: Diffuse bowel wall thickening and induration in the ileum and terminal ileum suspicious for Crohn's disease. Fleischner guidelines were followed. Electronically signed by: Stuart Sanz MD 01/20/2024 03:33 PM EDT RP
--- NOTE | 2024-01-20 11:05 | ED_ITS ---
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 Patient reports acute onset of lower abdominal pain with radiation to right upper quadrant which began yesterday morning. This did not wake him from his sleep. Reports pain is relieved with belching. Not exacerbated with eating. He has been able to tolerate a sandwich and soup last night. Reports associated diarrhea and nausea without vomiting. Reports 6 episodes of diarrhea yesterday. No episodes of vomiting or diarrhea today. He was not nauseous at present. Took one dose of Tylenol yesterday with minimal improvement. Abdominal pain is 4/10 at present. He also trialed Pepto-Bismol last night which improved symptoms. Denies recent travel outside [place] Denies consuming any abnormal food. No history of abdominal surgery. broadcast correspondent utilized throughout visit to communicate with patient. Related Data Home Medications ?Medication ?Instructions ?Recorded ?Confirmed baclofen 10 mg tablet 10 mg PO BID 01/17/21 08/06/21 fluoxetine 40 mg capsule 40 mg PO BEDTIME 01/17/21 08/06/21 fluticasone propionate 50 spray intranasal 01/17/21 01/17/21 mcg/actuation nasal spray,suspension risperidone 3 mg tablet 3 mg PO BEDTIME 01/17/21 08/06/21 albuterol sulfate 90 mcg/actuation 2 puff inhalation Q4-6H PRN 08/06/21 08/06/21 aerosol inhaler (ProAir HFA) Wheezing cetirizine 10 mg tablet 10 mg PO DAILY 08/20/21 cholecalciferol (vitamin D3) 50 50 mcg PO DAILY 08/20/21 mcg (2,000 unit) capsule Previous Rx's ?Medication ?Instructions ?Recorded docusate sodium 100 mg capsule 100 mg PO BID #30 caps 01/19/21 (Colace) tamsulosin 0.4 mg capsule 0.4 mg PO BEDTIME 14 days #14 caps 08/12/21 tramadol 50 mg tablet 50 mg PO Q6H PRN pain (scale score 08/14/21 1-3) 7 days #20 tabs ciprofloxacin HCl 500 mg tablet 500 mg PO BID 7 days #14 tabs 01/20/24 metronidazole 500 mg tablet 500 mg PO BID 7 days #14 tabs 01/20/24 prednisone 10 mg tablet See Taper PO DAILY #40 tabs 01/20/24 Allergies Allergy/AdvReac Type Severity Reaction Status Date / Time No Known Allergies Allergy Verified 01/20/24 11:09 Review of Systems Review of Systems Constitutional: No fever, chills, fatigue, night sweats, weight changes ENT/Mouth: No ear pain, hearing loss, nasal congestion, sinus pain, rhinorrhea, sore throat Eyes: No eye pain, swelling, redness, vision changes, discharge Cardio: No chest pain, palpitations, VELAZQUEZ, orthopnea, peripheral edema Pulm: No SOB, cough, sputum, wheezing, dyspnea, hemoptysis GI: No vomiting, hematemesis, constipation, hematochezia, melena, +abdominal pain, +nausea, +diarrhea : No irregular bleeding, dysuria, frequency, urgency, hesitancy, hematuria, flank pain, urinary flow changes, urinary incontinence or retention MSK: No back pain, neck pain, joint pain, myalgias Skin: No lesions, rashes Neuro: No weakness, numbness, paresthesias, LOC, dizziness, headache Psych: No anxiety/panic, depression, SI/HI, AH/VH All other systems reviewed and are negative. Yes all other systems are reviewed and are negative, unobtainable due to endotracheal tube, Unobtainable due to mental condition, Unobtainable due to mental status and Other PMFSH Past Medical History Attestation statement: The following information was validated with the patient. Source: old records reviewed and nursing notes reviewed Medical History Smoker History of heroin abuse Depression Back pain Hx of hepatitis C GERD (gastroesophageal reflux disease) Bipolar disorder Atypical chest pain Surgical History Hx of cystoscopy History of colonoscopy Hx of esophagogastroduodenoscopy Hx of elbow surgery Family History Family History Father Prostate cancer Mother Cancer Social History Social History Patient Tobacco Use Status: Current everyday Tobacco user Advance Directives: No Advance Directives Information Provided: Yes Physical Exam ED Vital Signs: Vital Signs - 24 hr 01/20/24 11:06 01/20/24 13:00 01/20/24 15:26 Temperature 98.0 F 98.1 F 98.3 F Pulse Rate 96 91 67 Respiratory Rate 16 16 18 Blood Pressure 139/80 133/83 132/83 Pulse Oximetry 99 98 98 Oxygen Delivery Method Room Air Room Air Room Air BMI result Body Mass Index 21.8 Vital signs stable, afebrile General: Well appearing, in no acute distress. Skin: Warm, dry, intact. No rashes or lesions. Head: Normocephalic, atraumatic. EENT: Hearing is intact b/l. Conjunctiva clear. PERRLA. EOM intact. Moist mucous membranes.? Neck: Supple without LAD Cardiac: Chest wall symmetric. RRR Lungs: Normal respiratory effort without accessory muscle use. CTA bilaterally. Abdomen: abdomen is soft, nondistended, mildly tender to palpation of the right lower quadrant without rebound tenderness or guarding. Normoactive bowel sounds x4. No CVAT bilaterally Back: No midline spinous or paraspinal tenderness. No step off deformity. Ext: Upper and lower extremities atraumatic, without tenderness, deformity, swelling or erythema. Full ROM throughout. Neuro: AOx3. Normal speech. CN 2-12 grossly intact. Psych: Appropriate mood and affect. Responds appropriately to questions. Course Course Course Narrative: This is an RME: Additional HPI, ROS, PE not included below will be deferred to primary provider. RME assessment and note performed by: Denisse Rodriguez PA-C This is a 3-ble[age]-yrg-male with a hx of hepatitic C, GERD, bipolar, depression, who presents to the ER with complaints of abdominal pain since yesterday. Pain is alleviated with belching. Also endorsing diarrhea and nausea, unable to tolerate PO secondary to nausea. Took peptobismol which helped. Abdomen is soft with TTP in the RLQ and right abdomen, no rebound or guarding. +chills, no fevers. Plan: Labs, UA, EKG Reevaluation(s) Reevaluation #1: 1347 -- CBC with slight leukocytosis to 11.9 with left shift. No anemia. H&H stable. Chemistry without acute electrolyte abnormality requiring intervention. No TEGAN. Total bili 1.3 however liver enzymes WNL. Troponin undetectable. Lipase WNL. Urine negative for infection or blood. > toradol ordered for pain control > ct abd pending 1559 -- on re-evaluation, patient reports complete resolution of pain after receiving Toradol. > CT abdomen/pelvis shows diffuse bowel wall thickening and induration in the ileum and terminal ileum suspicious for Crohn's disease. On further questioning, patient states he has never been diagnosed with Crohn's disease. Will send him home with prednisone taper, ciprofloxacin and Flagyl. Discussed the importance of following up with GI. Referral provided. educated on signs of bowel obstruction and when to return to the ED. Patient has remained stable throughout ED visit today. Discussed worrisome signs and symptoms and when to return to the ED. All questions answered at this time. Patient is agreeable with disposition and stable for discharge. Medical Decision Making Medical Decision Making [facility] Narrative: 53-year-old Serbian-speaking male with pmhx significant for hepatitis-C, GERD, bipolar disorder, depression presents to the ED today for evaluation of abdominal pain x 24 hours. Vital signs stable, afebrile. He is nontoxic- appearing and in no acute distress. Lying comfortably on the exam bed. On exam, abbdomen is soft, nondistended, mildly tender to palpation of the right lower quadrant without rebound tenderness or guarding. Normoactive bowel sounds x4. No CVAT bilaterally Differential diagnoses: appendicitis, diverticulitis, diverticulosis, gastroenteritis Abdominal exam without peritoneal signs. No evidence of acute abdomen at this time. Well appearing. Lower suspicion for acute hepatobiliary disease (including acute cholecystitis), acute infectious processes (pneumonia, hepatitis, pyelonephritis, testicular torsion), vascular catastrophe, bowel obstruction or viscus perforation, ovarian cyst/ rupture/ torsion, ectopic. Presentation not consistent with other acute, emergent causes of abdominal pain at this time. Plan for labs, UA, ekg, ct, pain control, and re-evaluation. Differential Diagnosis Differential Diagnoses: The differential diagnosis associated with the presentation includes As above Admission/Observation Not indicated Lab Data [facility] Lab Attestation statement: I reviewed the patient's lab results. as above. 01/20/24 11:28 01/20/24 11:28 Labs: Lab Results 01/20/24 01/20/24 Range/Units 11:28 13:26 WBC 11.9 H (4.8-10.8) X10*3/uL RBC 5.29 (4.60-5.80) X10*6/uL Hgb 16.9 (14.0-18.0) g/dl Hct 48.2 (42.0-52.0) % MCV 91.1 (80.0-98.0) fL MCH 31.9 (27.0-33.0) pg MCHC 35.1 (31.0-36.0) g/dl RDW 12.5 (11.0-16.0) % Plt Count 306 (160-400) X10*3/uL MPV 8.9 L (9.4-12.4) fL Immature Gran % (Auto) 0.3 (0.0-0.4) % Neut % (Auto) 80.3 H (45-73) % Lymph % (Auto) 9.8 L (20-40) % Wayne % (Auto) 7.6 (2-11) % Eos % (Auto) 1.5 (0-4) % Baso % (Auto) 0.5 (0-2) % Lymph # (Auto) 1.2 (1.2-4.9) X10*3/uL Wayne # (Auto) 0.9 (0.1-1.2) X10*3/uL Eos # (Auto) 0.2 (0.0-0.4) X10*3/uL Baso # (Auto) 0.1 (0.0-0.2) X10*3/uL Abs Immat Gran (auto) 0.03 (0.00-0.03) X10*3/uL Absolute Neuts (auto) 9.6 H (2.0-8.3) x10*3/uL Absolute Nucleated RBC 0.000 (0.0-0.012) X10*3/uL Nucleated RBC % (auto) 0.0 (0.0-0.2) /100WBC Sodium 139 (135-145) mmol/L Potassium 4.0 (3.3-5.1) mmol/L Chloride 107 (96-108) mmol/L Carbon Dioxide 27 (22-29) mmol/L Anion Gap 9 L (12-20) BUN 9 (9-16) mg/dL Creatinine 0.89 (0.5-1.4) mg/dL Estim Creat Clear Calc 86.2 Estimated GFR > 60 Random Glucose 94 (60-115) mg/dL Calcium 9.0 (8.4-10.2) mg/dL Magnesium 2.1 (1.6-2.6) mg/dL Total Bilirubin 1.3 H (0.0-1.0) mg/dL Direct Bilirubin 0.3 (0.0-0.5) mg/dL AST 19 (5-37) U/L ALT 12 (0-40) U/L Alkaline Phosphatase 88 (39-117) U/L Troponin I High Sens < 2.7 (<3.5-35.0) ng/L Total Protein 7.6 (6.5-8.0) g/dL Albumin 4.3 (3.5-5.0) g/dL Lipase 12 (8-78) U/L Urine Color Yellow Urine Appearance Clear Urine pH 6.0 (5.0-9.0) Ur Specific [place] 1.015 (1.005-1.025) Urine Protein Negative (Neg-Trace) mg/dL Urine Glucose (UA) Negative (Negative) mg/dL Urine Ketones Negative (Negative) mg/dL Urine Blood Negative (Negative) Urine Nitrite Negative (Negative) Ur Leukocyte Esterase Negative (Negative) Independent Interpretation I performed an independent interpretation of an: EKG and CT Scan Interpretation: EKG showing normal sinus rhythm with a rate of 86 beats per minute, QT 350, QTC 418, no acute ischemic changes or ST elevations. CT abdomen/ pelvis showing bowel wall thickening, agree with radiologist's interpretation. Radiology Impression Discussion of test interpretation with radiology: I have reviewed the radiologist's reading. Radiologist Impression: EXAMINATION: CT ABDOMEN AND PELVIS WITHOUT CONTRAST CLINICAL INFORMATION: Right-sided pain. Extending to the right lower quadrant. COMPARISON: 01/19/2021 TECHNIQUE: Multidetector volumetric imaging was performed from the superior aspect of the liver through the pubic symphysis. Sagittal and coronal reformatted images were obtained on the technologist's workstation. This CT examination was performed using dose optimization techniques as appropriate, variously including the following: *Automated exposure control *Adjustment of mA and/or kV according to patient size (this includes techniques or standardized protocols for targeted exams where dose is matched to indication/reason for exam; i.e. extremities or head) *Use of iterative reconstruction technique DLP: 370 mGy-cm FINDINGS: LUNG BASES: The visualized lung bases are unremarkable. LIVER, GALLBLADDER, AND BILIARY TREE: The liver is enlarged. No focal mass. No intrahepatic biliary dilatation. The gallbladder is unremarkable with no evidence of radiopaque gallstones, gallbladder wall thickening, or obvious pericholecystic inflammatory changes. PANCREAS: Unremarkable. SPLEEN: Unremarkable. ADRENAL GLANDS: Unremarkable. KIDNEYS AND URETERS: Tiny punctate nephroliths both kidneys but no suspicious mass, hydronephrosis or perinephric collection. 3 mm probable hyperdense cyst lower left kidney is observed. BLADDER: Unremarkable. GASTROINTESTINAL TRACT: Normal. There is mural thickening and induration seen in the terminal ileum extending throughout the entire ileum which extends deep into the pelvis. This is suspicious for inflammatory bowel disease such as Crohn's disease. I do not see evidence of perforation or abscess collection or discrete fistula formation. The distal small bowel loops are partly distended suspicious for a partial obstruction on the basis of the narrowing and edematous process at the distal ileum.. The colon appears unremarkable as does the jejunum. Sigmoid diverticular disease incidentally is seen. There is no ascites. ABDOMINAL WALL: No significant hernia is appreciated. LYMPH NODES: Normal. VASCULAR: There are atherosclerotic but nonaneurysmal. PELVIC VISCERA: Prostate and seminal vesicles unremarkable. No ascites deep in the pelvis. OSSEOUS STRUCTURES: Gaseous disc degeneration at the lumbosacral junction. CT/CT abdomen pelvis wo IV con IMPRESSION: Diffuse bowel wall thickening and induration in the ileum and terminal ileum suspicious for Crohn's disease. Fleischner guidelines were followed. Electronically signed by: Stuart Sanz MD 01/20/2024 03:33 PM EDT External Record Review External record reviewed: Inpatient record, Office record, Outpatient record, Prior outpatient labs, Prior outpatient radiology, Primary care record and Outside ED record Prescription Management I considered prescription management with: Pain Medication Social Determinants Patient?s care significantly limited by Social Determinants of Health including: Other Social Determinant of Health Medications Administered Discontinued Medications Generic Name Dose Route Start Last Admin Trade Name Freq PRN Reason Stop Dose Admin Ketorolac Tromethamine 30 mg 01/20/24 13:48 01/20/24 14:16 Ketorolac Tromethamine 30 Mg/Ml Vial IM 01/20/24 13:49 30 mg ONCE ONE Administration Critical Care Time Critical Care Time Critical Care Time: No Discharge Plan Discharge Clinical Impression: Abdominal pain, Bowel wall thickening, Crohn disease Patient Disposition: Home, Self-Care Instructions: Abdominal Pain (ED) Additional Instructions: Your blood work today is reassuring. Your urine is negative for infection. The CT scan of your abdomen shows : CT abdomen pelvis wo IV con IMPRESSION: Diffuse bowel wall thickening and induration in the ileum and terminal ileum suspicious for Crohn's disease. Prednisone as a steroid that has been sent to your pharmacy. Take this as directed: Take 4 tabs (40mg) for 3 days Take 3 tabs (30 mg) for 3 days Take 2 tabs (20mg) for 3 days Take 1 tab (10mg) for 3 days You have also been prescribed 2 different antibiotics to take over the next 7 days (ciprofloxacin and Flagyl). Take these as prescribed. Take these to completion and do not skip any doses. As discussed, you need to follow up with a GI doctor out patient. You have been provided with a referral. Call them to make an appointment. They will not call you. The most common complication is bowel obstruction. Please watch out for inability to pass gas or move your bowels. Return to the ED with new or worsening symptoms. In the case of an emergency call 911. Prescriptions: New prednisone 10 mg tablet See Taper PO DAILY Qty: 40 0RF Taper: Prednisone 40 mg daily for 3 Days and 0 Hour 30 mg daily for 3 Days and 0 Hour 20 mg daily for 3 Days and 0 Hour 10 mg daily for 3 Days and 0 Hour ciprofloxacin HCl 500 mg tablet 500 mg PO BID 7 Days Qty: 14 0RF metronidazole 500 mg tablet 500 mg PO BID 7 Days Qty: 14 0RF No Action tramadol 50 mg tablet 50 mg PO Q6H PRN (Reason: pain (scale score 1-3)) 7 Days Qty: 20 0RF albuterol sulfate [ProAir HFA] 90 mcg/actuation HFA aerosol inhaler 2 puff inhalation Q4-6H PRN (Reason: Wheezing) tamsulosin 0.4 mg capsule 0.4 mg PO BEDTIME 14 Days Qty: 14 0RF docusate sodium [Colace] 100 mg capsule 100 mg PO BID Qty: 30 0RF risperidone 3 mg tablet 3 mg PO BEDTIME fluoxetine 40 mg capsule 40 mg PO BEDTIME fluticasone propionate 50 mcg/actuation spray,suspension intranasal baclofen 10 mg tablet 10 mg PO BID cholecalciferol (vitamin D3) 50 mcg (2,000 unit) capsule 50 mcg PO DAILY cetirizine 10 mg tablet 10 mg PO DAILY Referrals: [facility] [Provider Group] - 5 days (CT abdomen pelvis wo IV con IMPRESSION: Diffuse bowel wall thickening and induration in the ileum and terminal ileum suspicious for Crohn's disease.) Print Language: Serbian
[2024-01-20 11:06] VITALS: BP 139/80; PULSE 96; RESP 16; TEMP 36.7; O2SAT 99; BMI 21.8
--- NOTE | 2024-01-20 11:09 | ECG_ITS ---
Test Reason : EPIGASTRIC PAIN Blood Pressure : / mmHG Vent. Rate : 086 BPM Atrial Rate : 086 BPM P-R Int : 136 ms QRS Dur : 080 ms QT Int : 350 ms P-R-T Axes : 077 031 058 degrees QTc Int : 418 ms Normal sinus rhythm Normal ECG When compared with ECG of 19-MAY-2011 09:46, No significant change was found Referred By: Denisse Rodriguez Electronically Signed By:Clyde Johnston
[2024-01-20 11:38] LABS: MANUAL DIFF FLAG NO
[2024-01-20 11:41] LABS: Basophils Absolute Auto 0.1 X10*3/uL (0.0-0.2); Basophils Percent Auto 0.5 % (0-2); Eosinophils Absolute Auto 0.2 X10*3/uL (0.0-0.4); Eosinophils Percent Auto 1.5 % (0-4); Hematocrit 48.2 % (42.0-52.0); Hemoglobin 16.9 g/dl (14.0-18.0); Imm Gran Abs Auto 0.03 X10*3/uL (0.00-0.03); Imm Gran Pct Auto 0.3 % (0.0-0.4); Lymphocytes Absolute Auto 1.2 X10*3/uL (1.2-4.9); Lymphocytes Percent Auto 9.8 % (20-40); Mean Corpuscular HGB Conc 35.1 g/dl (31.0-36.0); Mean Corpuscular Hemoglobin 31.9 pg (27.0-33.0); Mean Corpuscular Volume 91.1 fL (80.0-98.0); Mean Platelet Volume 8.9 fL (9.4-12.4); Monocytes Absolute Auto 0.9 X10*3/uL (0.1-1.2); Monocytes Percent Auto 7.6 % (2-11); Neutrophils Absolute Auto 9.6 x10*3/uL (2.0-8.3); Neutrophils Percent Auto 80.3 % (45-73); Platelet Count 306 X10*3/uL (160-400); Red Blood Count 5.29 X10*6/uL (4.60-5.80); Red Cell Distribution Width 12.5 % (11.0-16.0); White Blood Count 11.9 X10*3/uL (4.8-10.8)
[2024-01-20 11:56] LABS: Alanine Aminotransferase 12 U/L (0-40); Albumin Level 4.3 g/dL (3.5-5.0); Alkaline Phosphatase 88 U/L (39-117); Anion Gap 9 (12-20); Aspartate Amino Transferase 19 U/L (5-37); Bilirubin Direct 0.3 mg/dL (0.0-0.5); Bilirubin Total 1.3 mg/dL (0.0-1.0); Blood Urea Nitrogen 9 mg/dL (9-16); Carbon Dioxide 27 mmol/L (22-29); Chloride 107 mmol/L (96-108); Creatinine Clr Calc Pharmacy 86.2; Estimated Glomerular Filt Rate > 60; Glucose Random 94 mg/dL (60-115); Lipase 12 U/L (8-78); Magnesium 2.1 mg/dL (1.6-2.6); Sodium 139 mmol/L (135-145); Total Protein 7.6 g/dL (6.5-8.0)
--- NOTE | 2024-01-20 12:00 | MHC.EDTECH ---
Patient changed over, hourly round and vitals completed.and the call belt within patient reach.
[2024-01-20 12:18] LABS: Troponin-I High Sensitivity < 2.7 ng/L (<3.5-35.0)
[2024-01-20 13:00] VITALS: BP 133/83; PULSE 91; RESP 16; TEMP 36.7; O2SAT 98
[2024-01-20 13:32] LABS: Appearance Urine Clear; Color Urine Yellow; Glucose Urine UA Negative (Negative); Leukocyte Esterase Urine Negative (Negative); Nitrite Urine Negative (Negative); Specific Gravity - Urine 1.015 (1.005-1.025); Urine Blood Negative (Negative); Urine Ketones Negative (Negative); Urine Protein Negative (Neg-Trace)
[2024-01-20] MEDS: Ketorolac Tromethamine 30 MG/ML VIAL IM (14:16)
[2024-01-20 15:26] VITALS: BP 132/83; PULSE 67; RESP 18; TEMP 36.8; O2SAT 98
== END 2024-01-20 16:10 | disposition home or self-care (01) ==
PROVIDERS: Physician Assistant Medical; Emergency Provider Emergency Medicine
DX: K50.90 Crohn's disease, unspecified, without complications (principal); R10.31 Right lower quadrant pain; Z79.899 Other long term (current) drug therapy
CPT/HCPCS: 36415; 74176; 80048; 80076; 81003; 83690; 83735; 84484; 85025; 93005; 96372; 99284; J1885

== ENCOUNTER → 2024-01-20 11:09 | Outpatient (BNV) | payer MEDICAID, SELFPAY | PROVIDERS: Emergency Provider Emergency Medicine; Visit Provider Internal Medicine Cardiovascular Disease | DX: R10.13 Epigastric pain (principal) | CPT/HCPCS: 93010 ==

== ENCOUNTER 2024-01-28 10:14 | Emergency (ER) | payer MEDICAID, SELFPAY ==
--- NOTE | ~2024-01-28 | XR_ITS ---
EXAMINATION: XR ABDOMEN KUB CLINICAL INDICATION: Abdominal discomfort, constipation. COMPARISON: None available. TECHNIQUE: AP view of the abdomen. FINDINGS: The bowel gas pattern is normal with no evidence of ileus or obstruction. No unusual soft tissue calcifications are noted. No organomegaly. Lung bases are clear. Mildly elevated left hemidiaphragm. Heart size is normal. The bones are unremarkable. XR/XR KUB IMPRESSION: No acute findings. Normal examination. Electronically signed by: William Baez MD 01/28/2024 12:38 PM EDT
[2024-01-28 11:19] VITALS: BP 145/103; PULSE 80; RESP 16; TEMP 36.6; O2SAT 98; BMI 21.8
--- NOTE | 2024-01-28 11:19 | ED_ITS ---
HPI - General Adult General Chief complaint: Abdominal Pain Stated complaint: abd bloating-unable to use restroom Time Seen by Provider: 01/28/24 16:59 Source: patient Mode of arrival: ambulatory Limitations: language barrier (Taiwanese-speaking risk management manager utilized) History of Present Illness ED Provider: Jax Holland HPI narrative: Patient is a 53-year-old male who presents emergency department for evaluation. He reports that he was seen here a week ago for abdominal pain reports he was given multiple prescriptions to take. He reports due to an error in the prescriptions he did not start taking them until Thursday; 01/23/2024. He has yet to establish his outpatient follow-up appointment with gastroenterology. He reports that over the past 3 days he has not had a bowel movement, with today being the 3rd day. This made him nervous so he decided to seek re-evaluation. He denies associated fevers, chills, nausea, vomiting, inability to tolerate oral intake, or abdominal pain. He reports that he is still belching and passing gas without difficulty. He denies any recent hematochezia/melena Related Data Home Medications ?Medication ?Instructions ?Recorded ?Confirmed baclofen 10 mg tablet 10 mg PO BID 01/17/21 08/06/21 fluoxetine 40 mg capsule 40 mg PO BEDTIME 01/17/21 08/06/21 fluticasone propionate 50 spray intranasal 01/17/21 01/17/21 mcg/actuation nasal spray,suspension risperidone 3 mg tablet 3 mg PO BEDTIME 01/17/21 08/06/21 albuterol sulfate 90 mcg/actuation 2 puff inhalation Q4-6H PRN 08/06/21 08/06/21 aerosol inhaler (ProAir HFA) Wheezing cetirizine 10 mg tablet 10 mg PO DAILY 08/20/21 cholecalciferol (vitamin D3) 50 50 mcg PO DAILY 08/20/21 mcg (2,000 unit) capsule Previous Rx's ?Medication ?Instructions ?Recorded docusate sodium 100 mg capsule 100 mg PO BID #30 caps 01/19/21 (Colace) tamsulosin 0.4 mg capsule 0.4 mg PO BEDTIME 14 days #14 caps 08/12/21 tramadol 50 mg tablet 50 mg PO Q6H PRN pain (scale score 08/14/21 1-3) 7 days #20 tabs ciprofloxacin HCl 500 mg tablet 500 mg PO BID 7 days #14 tabs 01/20/24 metronidazole 500 mg tablet 500 mg PO BID 7 days #14 tabs 01/20/24 prednisone 10 mg tablet See Taper PO DAILY #40 tabs 01/20/24 Allergies Allergy/AdvReac Type Severity Reaction Status Date / Time No Known Allergies Allergy Verified 01/28/24 11:21 Review of Systems 2 Review of Systems: Yes all other systems are reviewed and are negative PMFSH Past Medical History Attestation statement: The following information was validated with the patient. Source: old records reviewed Medical History Smoker History of heroin abuse Depression Back pain Hx of hepatitis C GERD (gastroesophageal reflux disease) Bipolar disorder Atypical chest pain Surgical History Hx of cystoscopy History of colonoscopy Hx of esophagogastroduodenoscopy Hx of elbow surgery Family History Family History Father Prostate cancer Mother Cancer Social History Social History Alcohol intake: former Patient Tobacco Use Status: Current everyday Tobacco user Physical Exam ED Vital Signs: Vital Signs - 24 hr 01/28/24 11:19 01/28/24 16:36 01/28/24 16:59 Temperature 98 F 96.4 F L 97.8 F Pulse Rate 80 67 64 Respiratory Rate 16 16 18 Blood Pressure 145/103 H 146/85 H 149/83 H Pulse Oximetry 98 99 100 Oxygen Delivery Method Room Air Room Air Room Air BMI result Body Mass Index 21.8 Appearance: Alert.?Oriented to person, place and time. No acute distress.?Normal affect. Neck: Normal inspection.? Neck supple.?? CVS: Heart sounds normal. Normal heart rate and rhythm.? Pulses normal.?? Respiratory: No respiratory distress.? Lung sounds clear to auscultation bilaterally?? Abdomen: Soft and non-tender. Normoactive bowel sounds. No pulsatile mass.??No CVAT Skin: Skin warm and dry.? Normal skin color.? Extremities: No lower extremity edema.? Neuro: Moves all extremities spontaneously. Sensation intact bilaterally.Ambulates with normal steady gait. Course Course Course Narrative: RME, this is a rapid medical exam performed by Sandor Glover please refer to primary provider for complete H&P- 53-year-old primarily Taiwanese-speaking male presents for evaluation abdominal distention constipation. Patient was seen here a week ago yesterday and was diagnosed with IBS. He denies any abdominal pain, nausea vomiting but endorses ?belching. ? He reports he is still passing gas despite not having a bowel movement. Plan for labs, UA, KUB to start. Further workup as indicated Medical Decision Making Medical Decision Making [facility] Narrative: Patient is a 53-year-old male with past medical history of hepatitis-C, GERD, bipolar disorder, depression presenting to emergency department for re- evaluation as per HPI. He was seen in the emergency department 12/31/2023 with acute onset lower abdominal pain for 24 hours that was radiating to the right upper quadrant that alleviated with belching. He had a CT of the abdomen and pelvis which showed diffuse bowel wall thickening and induration in the ileum and terminal ileum suspicious for Crohn's disease but no reported history of Crohn's in the past. He was ultimately discharged home with a prednisone taper ciprofloxacin and Flagyl and advised to follow-up with gastroenterology. On evaluation today his abdominal examination is benign no tenderness rigidity or guarding, he has normoactive bowel sounds. He is tolerating oral intake without difficulty, passing flatus as well as belching. KUB is without obstructive bowel pattern, no severe constipation. Patient advised to continue medications as prescribed, increase daily fiber intake, follow-up with PCP/gastroenterology. All questions answered Differential Diagnosis Differential Diagnoses: The differential diagnosis associated with the presentation includes (See narrative above) Admission/Observation Consideration of admission/observation: Escalation of care including admission/observation considered Lab Data [facility] Lab Attestation statement: I reviewed the patient's lab results. CBC reveals a mild leukocytosis of 11.5 consistent with prior, no anemia thrombocytopenia. Inflammatory markers are not elevated. No electrolyte derangement. LFTs and lipase within normal range. 01/28/24 11:32 01/28/24 11:32 Labs: Lab Results 01/28/24 Range/Units 11:32 WBC 11.5 H (4.8-10.8) X10*3/uL RBC 5.41 (4.60-5.80) X10*6/uL Hgb 16.9 (14.0-18.0) g/dl Hct 49.5 (42.0-52.0) % MCV 91.5 (80.0-98.0) fL MCH 31.2 (27.0-33.0) pg MCHC 34.1 (31.0-36.0) g/dl RDW 12.1 (11.0-16.0) % Plt Count 366 (160-400) X10*3/uL MPV 8.8 L (9.4-12.4) fL Immature Gran % (Auto) 0.3 (0.0-0.4) % Neut % (Auto) 70.1 (45-73) % Lymph % (Auto) 16.6 L (20-40) % Stewart % (Auto) 12.2 H (2-11) % Eos % (Auto) 0.3 (0-4) % Baso % (Auto) 0.5 (0-2) % Lymph # (Auto) 1.9 (1.2-4.9) X10*3/uL Stewart # (Auto) 1.4 H (0.1-1.2) X10*3/uL Eos # (Auto) 0.0 (0.0-0.4) X10*3/uL Baso # (Auto) 0.1 (0.0-0.2) X10*3/uL Abs Immat Gran (auto) 0.04 H (0.00-0.03) X10*3/uL Absolute Neuts (auto) 8.1 (2.0-8.3) x10*3/uL Absolute Nucleated RBC 0.000 (0.0-0.012) X10*3/uL Nucleated RBC % (auto) 0.0 (0.0-0.2) /100WBC ESR 2 (0-15) MM/HR Hold Purple Top SEE NOTE Sodium 140 (135-145) mmol/L Potassium 4.2 (3.3-5.1) mmol/L Chloride 106 (96-108) mmol/L Carbon Dioxide 28 (22-29) mmol/L Anion Gap 10 L (12-20) BUN 16 (9-16) mg/dL Creatinine 0.99 (0.5-1.4) mg/dL Estim Creat Clear Calc 77.5 Estimated GFR > 60 Random Glucose 95 (60-115) mg/dL Calcium 9.9 D (8.4-10.2) mg/dL Total Bilirubin 0.6 (0.0-1.0) mg/dL AST 19 (5-37) U/L ALT 19 (0-40) U/L Alkaline Phosphatase 74 (39-117) U/L C-Reactive Protein < 0.10 (< or = 0.50) mg/dL Total Protein 7.5 (6.5-8.0) g/dL Albumin 4.3 (3.5-5.0) g/dL Lipase 20 (8-78) U/L Independent Interpretation I performed an independent interpretation of an: Plain X-Ray Radiology Impression Discussion of test interpretation with radiology: I have reviewed the radiologist's reading. Radiologist Impression: XR/XR KUB IMPRESSION: No acute findings. Normal examination. External Record Review External record reviewed: Outpatient record Tests considered The following testing was considered but not selected: Abdominal examination benign, unlikely to have acute surgical abdomen, repeat CT imaging is deferred Prescription Management I considered prescription management with: Other (Continue taking antibiotics and prednisone taper as previously prescribed) Chronic Conditions Patient?s care impacted by: Other (See narrative above) Discharge Plan Discharge Clinical Impression: Constipation Patient Disposition: Home, Self-Care Instructions: High Fiber Diet (ED), Constipation (ED) Additional Instructions: As discussed continue taking your medications as previously prescribed, follow- up with PCP/gastroenterology. Be sure that you are drinking plenty of water throughout the day, increase daily fiber intake. Return to emergency department with any new or worsening symptoms or concerns this includes but is not limited to fevers, chills, nausea persistent vomiting, inability to tolerate oral intake, abdominal pain, bloody stools, black stools. Prescriptions: No Action tramadol 50 mg tablet 50 mg PO Q6H PRN (Reason: pain (scale score 1-3)) 7 Days Qty: 20 0RF albuterol sulfate [ProAir HFA] 90 mcg/actuation HFA aerosol inhaler 2 puff inhalation Q4-6H PRN (Reason: Wheezing) tamsulosin 0.4 mg capsule 0.4 mg PO BEDTIME 14 Days Qty: 14 0RF docusate sodium [Colace] 100 mg capsule 100 mg PO BID Qty: 30 0RF prednisone 10 mg tablet See Taper PO DAILY Qty: 40 0RF Taper: Prednisone 40 mg daily for 3 Days and 0 Hour 30 mg daily for 3 Days and 0 Hour 20 mg daily for 3 Days and 0 Hour 10 mg daily for 3 Days and 0 Hour ciprofloxacin HCl 500 mg tablet 500 mg PO BID 7 Days Qty: 14 0RF metronidazole 500 mg tablet 500 mg PO BID 7 Days Qty: 14 0RF risperidone 3 mg tablet 3 mg PO BEDTIME fluoxetine 40 mg capsule 40 mg PO BEDTIME fluticasone propionate 50 mcg/actuation spray,suspension intranasal baclofen 10 mg tablet 10 mg PO BID cholecalciferol (vitamin D3) 50 mcg (2,000 unit) capsule 50 mcg PO DAILY cetirizine 10 mg tablet 10 mg PO DAILY Referrals: Rachelle Smith DO [Primary Care Provider] - Laurie Reina MD [Physician] - (AD pain CT w/ Diffuse bowel wall thickening and induration in the ileum and terminal ileum suspicious for Crohn's disease.) Print Language: Taiwanese
[2024-01-28 11:36] LABS: MANUAL DIFF FLAG NO
[2024-01-28 11:38] LABS: Basophils Absolute Auto 0.1 X10*3/uL (0.0-0.2); Basophils Percent Auto 0.5 % (0-2); Eosinophils Percent Auto 0.3 % (0-4); Hematocrit 49.5 % (42.0-52.0); Hemoglobin 16.9 g/dl (14.0-18.0); Imm Gran Abs Auto 0.04 X10*3/uL (0.00-0.03); Imm Gran Pct Auto 0.3 % (0.0-0.4); Lymphocytes Absolute Auto 1.9 X10*3/uL (1.2-4.9); Lymphocytes Percent Auto 16.6 % (20-40); Mean Corpuscular HGB Conc 34.1 g/dl (31.0-36.0); Mean Corpuscular Hemoglobin 31.2 pg (27.0-33.0); Mean Corpuscular Volume 91.5 fL (80.0-98.0); Mean Platelet Volume 8.8 fL (9.4-12.4); Monocytes Absolute Auto 1.4 X10*3/uL (0.1-1.2); Monocytes Percent Auto 12.2 % (2-11); Neutrophils Absolute Auto 8.1 x10*3/uL (2.0-8.3); Neutrophils Percent Auto 70.1 % (45-73); Platelet Count 366 X10*3/uL (160-400); Red Blood Count 5.41 X10*6/uL (4.60-5.80); Red Cell Distribution Width 12.1 % (11.0-16.0); White Blood Count 11.5 X10*3/uL (4.8-10.8)
[2024-01-28 11:52] LABS: Alanine Aminotransferase 19 U/L (0-40); Albumin Level 4.3 g/dL (3.5-5.0); Alkaline Phosphatase 74 U/L (39-117); Anion Gap 10 (12-20); Aspartate Amino Transferase 19 U/L (5-37); Bilirubin Total 0.6 mg/dL (0.0-1.0); Blood Urea Nitrogen 16 mg/dL (9-16); C Reactive Protein < 0.10 mg/dL (< or = 0.50); Calcium 9.9 mg/dL (8.4-10.2); Carbon Dioxide 28 mmol/L (22-29); Chloride 106 mmol/L (96-108); Creatinine Clr Calc Pharmacy 77.5; Estimated Glomerular Filt Rate > 60; Glucose Random 95 mg/dL (60-115); Lipase 20 U/L (8-78); Potassium 4.2 mmol/L (3.3-5.1); Sodium 140 mmol/L (135-145); Total Protein 7.5 g/dL (6.5-8.0)
[2024-01-28 12:24] LABS: Erythrocyte Sedimentation Rate 2 MM/HR (0-15)
[2024-01-28 16:36] VITALS: BP 146/85; PULSE 67; RESP 16; TEMP 35.8; O2SAT 99
[2024-01-28 16:59] VITALS: BP 149/83; PULSE 64; RESP 18; TEMP 36.6; O2SAT 100
[2024-01-28 17:36] VITALS: BP 149/83; PULSE 64; RESP 18; TEMP 36.6; O2SAT 100
== END 2024-01-28 17:36 | disposition home or self-care (01) ==
PROVIDERS: Physician Assistant; Emergency Provider Emergency Medicine; PCP Family Medicine
DX: K59.00 Constipation, unspecified (principal); R10.9 Unspecified abdominal pain; Z79.899 Other long term (current) drug therapy; Z86.19 Personal history of other infectious and parasitic diseases
CPT/HCPCS: 36415; 74018; 80053; 83690; 85025; 85652; 86140; 99283; 99284

== ENCOUNTER → 2024-01-28 11:19 | Outpatient (BNV) | payer MEDICAID, SELFPAY | PROVIDERS: PCP Family Medicine; Visit Provider Radiology Diagnostic Radiology | DX: R10.9 Unspecified abdominal pain (principal) | CPT/HCPCS: 74018 ==

== ENCOUNTER 2024-03-11 07:24 | Day surgery (SDC) | payer MEDICAID, SELFPAY ==
[2024-03-09 10:48] VITALS: BMI 21.7
--- NOTE | 2024-03-10 09:19 | HO.ANESPROP2 ---
Documented by User: Mona Schneider NP 03/10/24 09:21 HPI - Anesthesia Eval Consult details Narrative: 53yo M for Colonoscopy PMFSH Active Problems Active Problems: All Active Problems Nicotine dependence, cigarettes, uncomplicated (Acute) Nephrolithiasis (Acute) Arteriovenous malformation of kidney (Acute) Gross hematuria (Acute) Past Medical History Medical History (Updated 03/09/24 @ 10:49 by Dominique Cazares RN) Smoker History of heroin abuse Depression Back pain Hx of hepatitis C GERD (gastroesophageal reflux disease) Bipolar disorder Atypical chest pain Family History Family History Father Prostate cancer Mother Cancer Family history of problems with anesthesia: No Surgical History Surgical History (Updated 03/09/24 @ 10:49 by Dominique Cazares RN) History of liver biopsy Hx of cystoscopy History of colonoscopy Hx of esophagogastroduodenoscopy Hx of elbow surgery History of Problems with Anesthesia: No Social History Social History (Updated 03/09/24 @ 10:50 by Dominique Cazares RN) Are you a primary care management coordinator to a significant other at home: No Do you presently have visiting nurse or other home services: No Alcohol intake: former Patient Tobacco Use Status: Current everyday Tobacco user Tobacco use type: Cigarette Cigarette Packs Per Day: 1 Cigarettes Per Day: 12 Use of substances other than those prescribed or required for medical reasons: No Have you been hit, kicked, punched, or otherwise hurt by someone within the past year? If so, by whom?: No Are you DNR?: No Advance Directives: No Advance Directives Information Provided: Yes Recently lost weight without trying: No Nutrition Risks: No Nutritional Risk Poor oral hygiene: No Meds Allergies Allergy/AdvReac Type Severity Reaction Status Date / Time No Known Allergies Allergy Verified 01/28/24 11:21 Home Medications ?Medication ?Instructions ?Recorded ?Confirmed ?Last Taken ?Type fluoxetine 40 mg capsule 40 mg PO BEDTIME 01/17/21 03/09/24 Unknown History fluticasone propionate 50 2 spray intranasal DAILY 01/17/21 03/09/24 Unknown History mcg/actuation nasal spray,suspension risperidone 3 mg tablet 3 mg PO BEDTIME 01/17/21 03/09/24 Unknown History cetirizine 10 mg tablet 10 mg PO DAILY 08/20/21 Unknown History cholecalciferol (vitamin D3) 50 50 mcg PO DAILY 08/20/21 Unknown History mcg (2,000 unit) capsule famotidine 20 mg tablet 20 mg PO DAILY 03/09/24 03/09/24 Unknown History Exam Height,Weight and Vital Signs: Height 5 ft 8 in Weight 64.864 kg Pertinent Lab Results Pertinent Lab Results: Laboratory Tests 01/28/24 11:32 WBC 11.5 H Hgb 16.9 Hct 49.5 Plt Count 366 Sodium 140 Potassium 4.2 Chloride 106 Carbon Dioxide 28 BUN 16 Creatinine 0.99 Narrative Narrative: EKG 12/2023 Vent. Rate : 086 BPM Atrial Rate : 086 BPM P-R Int : 136 ms QRS Dur : 080 ms QT Int : 350 ms P-R-T Axes : 077 031 058 degrees QTc Int : 418 ms Normal sinus rhythm Normal ECG When compared with ECG of 19-MAY-2011 09:46, No significant change was found Assessment and Plan Assessment Anesthesia Assessment: Chart Reviewed Final Anesthetic Review Family History of Problems with Anesthesia: No History of Problems with Anesthesia: No Documented by User: Sheela Waggoner MD 03/11/24 08:26 [facility] Past Medical History Medical History (Updated 03/09/24 @ 10:49 by Dominique Cazares RN) Smoker History of heroin abuse Depression Back pain Hx of hepatitis C GERD (gastroesophageal reflux disease) Bipolar disorder Atypical chest pain Family History Family History Father Prostate cancer Mother Cancer Surgical History Surgical History (Updated 03/09/24 @ 10:49 by Dominique Cazares RN) History of liver biopsy Hx of cystoscopy History of colonoscopy Hx of esophagogastroduodenoscopy Hx of elbow surgery Social History Social History (Updated 03/09/24 @ 10:50 by Dominique Cazares RN) Are you a primary care management coordinator to a significant other at home: No Do you presently have visiting nurse or other home services: No Alcohol intake: former Patient Tobacco Use Status: Current everyday Tobacco user Tobacco use type: Cigarette Cigarette Packs Per Day: 1 Cigarettes Per Day: 12 Use of substances other than those prescribed or required for medical reasons: No Have you been hit, kicked, punched, or otherwise hurt by someone within the past year? If so, by whom?: No Are you DNR?: No Advance Directives: No Advance Directives Information Provided: Yes Recently lost weight without trying: No Nutrition Risks: No Nutritional Risk Poor oral hygiene: No Meds Allergies Allergy/AdvReac Type Severity Reaction Status Date / Time No Known Allergies Allergy Verified 01/28/24 11:21 Home Medications ?Medication ?Instructions ?Recorded ?Confirmed ?Last Taken ?Type fluoxetine 40 mg capsule 40 mg PO BEDTIME 01/17/21 03/09/24 Unknown History fluticasone propionate 50 2 spray intranasal DAILY 01/17/21 03/09/24 Unknown History mcg/actuation nasal spray,suspension risperidone 3 mg tablet 3 mg PO BEDTIME 01/17/21 03/09/24 Unknown History cetirizine 10 mg tablet 10 mg PO DAILY 08/20/21 Unknown History cholecalciferol (vitamin D3) 50 50 mcg PO DAILY 08/20/21 Unknown History mcg (2,000 unit) capsule famotidine 20 mg tablet 20 mg PO DAILY 03/09/24 03/09/24 Unknown History Exam Airway Mallampati Class: II TM Dist: >3cm Neck ROM: Full Assessment and Plan Assessment Anesthesia Assessment: Anesthesia Plan Discussed Final Anesthetic Review NPO: Yes ASA Class: II Final Preanesthetic Review: No Changes in Pt Med Stat, Meds/Allgs Chart Reviewed, Consent Obtained/Reviewed, Anes Risks/Benef Reviewed and DNR Form (If Appl.) Patient Risk: Intermediate Procedure Risk: Low Anesthetic Plan Anesthetic Plan: TIVA Disposition: Standard PACU
--- OUTSIDE RECORDS SUMMARY | 2024-03-11 07:28 | XMS_ITS ---
Author Organization [facility] Address [address] [place] [address] Care Team Providers Care Belt Glass Sander Name Role Phone Rachelle Smith M.D. Primary Care Provider Marni vailable Eugenio Hays Jr [phone] RE[address]ON [address]IT abnormal ct scan GI tract Encounters Encounter Location Date Provider Diagnosis [facility] [address] [place] [phone] 03/11/2024 Eugenio Hays Jr PLAN OF TREATMENT Next Appt Details Provider Name:Eugenio thomas Jr, 03/11/2024 10:00:00 AM, [address] [place] [address], [phone],
--- OUTSIDE RECORDS SUMMARY | 2024-03-11 07:28 | XMS_ITS | Patient Health Record ---
Author Organization [facility] Address [address] [place] [address] Care Team Providers Care Pattern Storage Clerk Name Role Phone Rachelle Smith M.D. Primary Care Provider Marni vailable Eugenio Hays Jr Unavailable ALLERGIES No Known Allergies REASON FOR REFERRAL Referring Provider First Name Rachelle Referring Provider Last Name Sarah Referred Organization [facility] Referred Provider Eugenio Hays Jr Referred Address [address] [facility],[address],[place], [place],[address], Referred Provider Specialty Gastroentero logy General Notes Latonya Chanel 024 04:08:27 PM EST > requested a [facility] from [facility] for visit with Dr. Hays on 02-10-2024 Referral Priority Routine MEDICATIONS Medication SIG (Take, Route, Frequency, Duration) Notes Start Date End Date Status Flonase 50 MCG/ACT 2 spray in each nost ril Nasally Once a day Active risperiDONE 3 MG TAKE 1/2 TABLET BY M OUTH TWICE A DAY PLEASE TAKE HALF, 1.5 MG, TWICE A DAY Oral for 30 Active PROzac 20 MG 2 capsule in the mor becky Orally Once a day Active MiraLax (colon prep) 8.3 ounce ((238) grams mixed with Gatorade or Crystal Light orally begin at 5:00 p.m. the day before the procedure for 1 day 02/10/2024 Active Dulcolax (colon prep) 5 MG take at 3:00 p.m and 7:00p.m. Orally two tablets twice a day for one day for 1 day 02/10/2024 Active MiraLax (colon prep) 17 GM/SCOOP mixed with Gatorade or Crystal Light Orally begin at 5:00 p.m. the day before the procedure for 1 day 02/10/2024 Active Famotidine 20 MG 1 tablet at bedtime as needed Orally Once a day for 30 day(s) Active IMMUNIZATIONS Vaccine Route Administration Date Status Comme nts Influenza Unknown 06/09/2018 Refused Influenza Unknown 12/15/2018 Refused Influenza Unknown 09/10/2022 Refused Influenza Unknown 02/10/2024 Refused SOCIAL HISTORY Tobacco Use: Social History Observation Description Date Details (start date - stop date) Current Smoker NA - NA Sex Assigned At : Social History Observation Description Sex Assigned At Unknown Tobacco Use/Smoking Question Answer Notes Patient is a current smoker How often do you smoke cigarettes? every day How many cigarettes a day do you smoke? 11-20 How soon after you wake up d o you smoke your first cigarette? 6-30 minutes Are you interested in quitting? Thinking about q uitting Alcohol Screen Question Answer Notes Did you have a drink containing alcohol in the p ast year? No Points 0 Interpretation Negative PROBLEMS Problem Type ICD Code Onset Dates Problem Status W/U Status Risk SNOMED Code Notes Problem Epigastric pain (R10.13) Active confirmed 30403117 Problem Special screening for malignant neoplasms, colon (Z12.11) Active confirmed 518309952 Problem Personal history of colonic polyps (Z86.010) Active confirmed History of polyp of colon (situation) (080180738) Problem Abnormal CT scan, gastrointestinal tract (R93.3) Active confirmed 139898069 Problem Gastroesophageal reflux disease without esophagitis (K21.9) Active confirmed 827057400 Problem Gastroesophageal reflux disease with esophagitis without hemorrhage (K21.00) Active confirmed 193114025 VITAL SIGNS Temperature 98.2 degrees Fahrenheit 02/10/2024 Blood pressure diastolic 00 mm Hg 02/10/2024 Height 68 in 02/10/2024 Blood pressure systolic 000 mm Hg 02/10/2024 Weight 143 lbs 02/10/2024 BMI 21.74 kg/m2 02/10/2024 Encounters Encounter Location Date Provider Diagnosis [facility] [place] [facility] [address] [place], [place] [phone] 03/11/2024 Eugenio Hays [facility] [address] [place] [address] 02/10/2024 Eugenio Hays [address] Abnormal CT scan, gastrointestinal tract R93.3 [facility] [address] [place] [address] 02/10/2024 Eugenio Hays Jr ASSESSMENTS Encounter Date Diagnosis Assessment Notes Treatment Notes Treatment Clinical Notes 02/10/[address] scan, gastrointestinal tract (ICD-10 - R93.3) Colonoscopy material was printed PLAN OF TREATMENT Future Test Test Name Order Date UPPER GI ENDOSCOPY 12/24/2016 COLONOSCOPY 12/15/2018 COLONOSCOPY 09/10/2022 COLONOSCOPY 02/10/2024 Next Appt Details Provider Name:Eugenio thomas Jr, 03/11/2024 10:00:00 AM, [address] [place] [address] , [place], [place], [phone], Insurance Providers Payer Name Payer Address Payer Phone Subscriber Number Group Number Insured Name Patient Relationship to Insured Coverage Start Date Coverage End Date MEDICA[employer] OF [employer] [address] [place] [address] [id number] DANK VARGAS Self - patient is the insured MEDICAL (GENERAL) HISTORY Medical History History ICD Code Gastroesophageal reflux dise ase, EGD 02/13, no Palacios's esophagus or H. pylori hepatitis C, genotype one, s ustained response to treatment with interferon and ribavirin x48 weeks 2005 depression allergic rhinitis opiate dependence Colon polyps, colonoscopy 02/15 adenomat ous polyps, three-year followup Surgical History Surgery Date(Month/Year) right arm liver biopsy, consistent wit h chronic hepatitis C grade 2/4, stage 1- 2/4, normal hepatic iron index 04/02 Hospitalization History Reason Date(Month/Year) 2 hospital visits for abdominal pain.
--- OUTSIDE RECORDS SUMMARY | 2024-03-11 07:28 | XMS_ITS ---
Author Organization [facility] Address [address] [place] [address] Care Team Providers Care Switch Adjuster Name Role Phone Rachelle Smith M.D. Primary Care Provider Marni Eugenio Jeong Jr Unavailable ALLERGIES No Known Allergies REASON FOR VISIT Patient presents today for an abnormal ct scan MEDICATIONS Medication SIG (Take, Route, Frequency, Duration) [...] mor becky Orally Once a day Active Famotidine 20 MG 1 tablet at bedtime as needed Orally Once a day for 30 day(s) Active MiraLax (colon prep) 17 GM/SCOOP mixed with Gatorade or Crystal Light Orally begin at 5:00 p.m. the day before the procedure for 1 day 02/10/2024 Active IMMUNIZATIONS Vaccine Route Administration Date Status Comme nts Influenza Unknown 02/10/2024 Refused SOCIAL HISTORY Tobacco [...] W/U Status Risk SNOMED Code Notes Problem Abnormal CT scan, gastrointestinal tract (R93.3) Active confirmed [id number] VITAL SIGNS BMI 21.74 kg/m2 02/10/2024 Blood pressure systolic 000 mm Hg 02/10/20 24 Blood pressure diastolic 00 mm Hg 024 Height 68 in 02/10/2024 Temperature 98.2 degrees Fahrenheit 02/10/20 24 Weight 143 lbs 02/10/2024 Encounters Encounter Location Date Provider Diagnosis [facility] [address] [place] [address] 02/10/2024 Eugenio Hays Jr Abnormal CT scan, gastrointestinal tract R93.3 ASSESSMENTS Encounter Date Diagnosis Assessment Notes Treatment Notes Treatment Clinical Notes 02/10/[address] scan, gastrointestinal tract (ICD-10 - R93.3) Colonoscopy material was printed PLAN OF TREATMENT Medication Medication Name Sig Start Date Stop Date Notes MiraLax (colon prep) 17 GM/SCOOP mixed with Gatorade or Crystal Light Orally begin at 5:00 p.m. the day before the procedure for 1 day 02/10/2024 Treatment Notes Assessment Notes Abnormal CT scan, gastrointestinal tract Colonoscopy material was printed Future Test Test Name Order Date COLONOSCOPY 02/10/2024 Next Appt Details Provider Name:Eugenio thomas Jr, 03/11/2024 10:00:00 AM, [address] [place] [address] , [place], [place], [phone],
--- OUTSIDE RECORDS SUMMARY | 2024-03-11 07:28 | XMS_ITS ---
Author Organization [facility] Address [address] [place] [phone] Care Team Providers Care Price Accuracy Supervisor Name Role Phone Rachelle Smith M.D. Primary Care Provider Marni vailaEugenio Romo Jr REASON FOR VISIT bowel prep MEDICATIONS Medication SIG (Take, Route, Frequency, Duration) Notes Start Date End Date Status MiraLax (colon prep) 8.3 ounce ((238) grams mixed with Gatorade or Crystal Light orally begin at 5:00 p.m. the day before the procedure for 1 day 02/10/2024 Active Dulcolax (colon prep) 5 MG take at 3:00 p.m and 7:00p.m. Orally two tablets twice a day for one day for 1 day 02/10/2024 Active Encounters Encounter Location Date Provider Diagnosis [facility] [address] [place] [phone] 02/10/2024 Eugenio Hays Jr PLAN OF TREATMENT Medication Medication Name Sig Start Date Stop Date Notes MiraLax (colon prep) 8.3 oun ce ((238) grams mixed with Gatorade or Crystal Light orally begin at 5:00 p.m. the day before the procedure for 1 day 02/10/2024 Dulcolax (colon prep) 5 MG take at 3:00 p.m and 7:00p.m. Orally two tablets twice a day for one day for 1 day 02/10/2024 Next Appt Details Provider Name:Eugenio thomas Jr, 03/11/2024 10:00:00 AM, [address] [place] [address], [phone],
[2024-03-11 08:12] VITALS: BP 130/84; PULSE 76; RESP 14; TEMP 36.7; O2SAT 98; BMI 21.6
[2024-03-11] MEDS: Lactated Ringers 1,000 ML 100 ML IVCONT (08:46)
--- NOTE | 2024-03-11 08:49 | MHC.SHP ---
Pre-Procedural Eval Section A - 24 Hr Update-Section A only Date of Service: 03/11/24 Section B - Complete if H&P > 30 days Chief Complaint: Abnormal findings on diagnostic imaging Details of Present Illness: see H&P no changes Relevant Family History (Specify if Yes): No Relevant Social History: None Present Medications: see Short Stay Collaborative assessment Medical History: No relevant PMH History of Previous Operations: No relevant previous surgery Allergies: Allergies Allergy/AdvReac Type Severity Reaction Status Date / Time No Known Allergies Allergy Verified 01/28/24 11:21 Plan I have reviewed the history and physical and performed a pertinent physical examination on my patient. No changes have occurred unless specified. Time Spent With Patient Time: Total time managing care of this patient today ____ minutes.
[2024-03-11 09:30] VITALS: BP 93/53; PULSE 98; RESP 16; TEMP 37; O2SAT 98
[2024-03-11 09:45] VITALS: BP 98/56; PULSE 96; RESP 16; O2SAT 98
[2024-03-11 10:00] VITALS: BP 112/64; PULSE 74; RESP 16; TEMP 36.6; O2SAT 99
--- NOTE | 2024-03-11 10:35 | OP_ITS ---
DATE OF SERVICE: 03/11/2024 SURGEON: Eugenio Hays MD INDICATIONS: Abnormal CT scan of the GI tract PREOPERATIVE DIAGNOSIS: POSTOPERATIVE DIAGNOSIS: PROCEDURE PERFORMED: Colonoscopy to the terminal ileum with biopsy and snare polypectomy. ESTIMATED BLOOD LOSS: COMPLICATIONS: ANESTHESIA: Monitored anesthesia care. ASSISTANTS: SPECIMENS: DESCRIPTION OF PROCEDURE: A history and physical was performed. The risks and benefits of the procedure were explained to the patient. Informed consent was obtained. The patient was placed in the left lateral decubitus position. A digital rectal exam was performed and was found to be normal. The Olympus pediatric video colonoscope was introduced into the rectum and advanced to the cecum. The cecum was identified by transillumination, palpation, and identification of the ileocecal valve. Examination was performed. The scope was removed. He tolerated the procedure well and was returned to the recovery area in stable condition. FINDINGS: The terminal ileum was examined and appeared normal. There was no evidence of Crohn disease. Biopsies were obtained from the mucosa. The visualized colonic mucosa was within normal limits without evidence of masses or ulcers. A single polyp measuring less than 5 mm was identified at 45 cm from the anal verge. This was removed with a cold snare and recovered via suction and with the biopsy forceps. Random sigmoid biopsies were obtained. Retroflexed examination showed some small internal hemorrhoids. The quality of the prep was good. There was mild sigmoid diverticulosis. IMPRESSION: Colon polyp. RECOMMENDATION: Follow up the biopsy results. MD ALMA English/NAPOLEONL / [id number]
== END 2024-03-11 10:33 | disposition home or self-care (01) ==
PROVIDERS: PCP Family Medicine; Visit Provider Internal Medicine Gastroenterology
PROC: 0DJD8ZZ Inspection of Lower Intestinal Tract, Via Natural or Artificial Opening Endoscopic (ICD-10-PCS; CPT 45378; principal; 2024-03-11 09:10)
DX: R93.3 Abnormal findings on diagnostic imaging of other parts of digestive tract (principal); Z86.0101 Personal history of adenomatous and serrated colon polyps; D12.5 Benign neoplasm of sigmoid colon; K57.30 Diverticulosis of large intestine without perforation or abscess without bleeding; K64.8 Other hemorrhoids; B19.20 Unspecified viral hepatitis C without hepatic coma; K21.9 Gastro-esophageal reflux disease without esophagitis; J30.9 Allergic rhinitis, unspecified; F11.20 Opioid dependence, uncomplicated; F32.A Depression, unspecified; Z79.899 Other long term (current) drug therapy; F17.210 Nicotine dependence, cigarettes, uncomplicated; Z98.890 Other specified postprocedural states
CPT/HCPCS: 45385; 45380; 88305; J2003; J2250; J2704

== ENCOUNTER 2024-06-06 10:09 | Outpatient (REF) | payer MEDICAID, SELFPAY ==
--- NOTE | ~2024-06-06 | CT_ITS ---
CLINICAL HISTORY: F17.210 - Nicotine dependence, cigarettes, uncomplicated CT lung cancer screening (LDCT) Comparison: 06/05/2023 Technique: Axial CT images of the chest using low-dose technique. Referring provider counseled the patient on shared decision-making for LDCT screening. Additional counseling was provided on smoking cessation. Findings: Lung: No evidence of pneumonia or edema. No change in biapical scarring. No change in biapical ground-glass densities, including the 7 mm left apical ground-glass density (image 27). No new pulmonary opacities Coronary artery calcifications: None Limited upper abdomen: Unremarkable Other: None Impression: LungRADS 2 - Benign Appearance: Continue annual screening with low dose Chest CT in 12 months. ##L2# Category 1: Normal; continue annual screening Category 2: Benign appearance or behavior, continue annual screening Category 3: Probably benign, [address] recommended Category 4A: Suspicious, [address] recommended; may consider PET/CT Category 4B: Suspicious, Additional diagnostics and/or tissue sampling recommended Category 4X: Suspicious, Additional diagnostics and/or tissue sampling recommended Category 0: Recalls (incomplete screen due to Incomplete coverage, Noise, Respiratory motion, Expiration, Obscured by acute abnormality) This document has been electronically signed by: Elsy Snow MD on 06/07/2024 15:47:49
--- OUTSIDE RECORDS SUMMARY | 2024-06-06 11:18 | XMS_ITS | Clinical Summary ---
Author Organization [facility] Address [address] [place] [address] Phone Care Team Providers Care Shank Threader Name Role Phone Rachelle Smith DO Primary Care Provider Romelia ildigeo Allergies No known active allergies Medications FLUoxetine (PROzac) 20 MG capsule Take 20 mg by mouth 1 (one) time each day Active cetirizine (ZyrTEC) 10 MG tablet Take 10 mg by mouth 1 (one) time each day Active risperiDONE (RisperDAL) 3 MG tablet Take 3 mg by mouth in the morning and 3 mg in the evening. Active buPROPion XL (WELLBUTRIN XL) 150 MG 24 hr tablet TOME ROSHNI TABLETA TODOS LOS D 06/21/2022 Active Active Problems Problem Noted Date Diagnosed Date Renal stone 02/03/2023 Social History Tobacco Use Types Packs/Day Years Used Date Smoking Tobacco: Former Cigarettes Smokeless Tobacco: Never Tobacco Cessation:Counseling Given: Not Answered Alcohol Use Standard Drinks/Week Comments Yes 0 (1 standard drink = 0.6 oz pur e alcohol) Sex and Gender Information Value Date Recorded Sex Assigned at Not on file Legal Sex Male 4:44 PM EST Gender Identity Not on file Sexual Orientation Not on file Last Filed Vital Signs Vital Sign Reading Time Taken Comments Blood Pressure 101/60 02/03/2023 3:19 PM EST Pulse 100 02/03/2023 3:19 PM EST Temperature - - Respiratory Rate - - Oxygen Saturation 97% 02/03/2023 3:19 PM EST Inhaled Oxygen Concentration - - Weight 65 kg (143 lb 6.4 oz) 02/03/2023 3:19 PM EST Height - - Body Mass Index - - Plan of Treatment Health Maintenance Due Date Last Done Comments Hepatitis B Vaccine (1 of 3 - 19+ 3-dose series) 10/25 Pneumococcal Vaccine: Pediat rics (0 to 5 Years) and At-Risk Patients (6 to 64 Years) (2 of 2 - PCV) 04/21/2015 04/21/2014 Colorectal Cancer Screening: Annual FOBT 2017 Colorectal Cancer Screening: Colonoscopy 2017 Colorectal Cancer Screening: Sigmoidoscopy 2017 Influenza Vaccine (#1) 2023 Insurance [place] Care Teams Shank Threader Relationship Specialty Start Date End Date Rachelle Smith DO PCP - General Family Medicine 02/12/22
--- OUTSIDE RECORDS SUMMARY | 2024-06-06 11:19 | XMS_ITS | Clinical Summary ---
Author Organization [facility] Address [address] [place] [address] Care Team Providers Care Pressroom Worker Name Role Phone Rachelle Smith DO Primary Care Provider [phone] Allergies Active Allergy Reactions Criticality Noted Date Comments Loratadine Palpitations Low 01/02/2020 Medications baclofen (Lioresal) 10 MG tablet Take 1 tablet by mouth in the morning and 1 tablet in the evening. 07/25/2021 Active albuterol 108 (90 Base) MCG/ACT inhaler every 4 to 6 hours 08/06/2021 Active acetaminophen (Tylenol 8 Hour) 650 MG ER tablet Take 1 tablet by mouth every 8 (eight) hours. 11/28/2020 Active buPROPion XL (Wellbutrin XL) 150 MG 24 hr tablet TOME ROSHNI TABLETA LOS D 01/31/2023 Active cholecalciferol (Vitamin D-3) 50 MCG (1999 UT) capsule 50 mcg. 08/13/2021 Active FLUoxetine (PROzac) 40 MG capsule TOME ROSHNI C PSULA LOS D 02/25/2023 Active risperiDONE (RisperDAL) 3 MG tablet TAKE 1/2 TABLET POR V A ORAL DOS VECES AL D A 02/27/2023 Active fluticasone (Flonase Allergy Relief) 50 MCG/ACT nasal spray 2 sprays in the morning. 11/28/2020 Active cetirizine (ZyrTEC) 10 MG tablet Take 10 mg by mouth. 08/13/2021 Active predniSONE (Deltasone) 10 MG tablet Take 10 mg by mouth Once per day. 01/21/2024 Active Active Problems Problem Noted Date Diagnosed Date Diverticulosis 02/04/2024 Healthcare maintenance 08/12/2023 Arteriovenous malformation of kidney 03/25/2023 03/25/2023 Chronic gastroesophageal reflux disease 03/25/2003/25/2023 Allergic rhinitis 09/13/2015 03/25/2023 Nephrolithiasis 09/13/2015 03/25/2023 Mood disorder 09/13/2015 03/25/2023 Opioid dependence 09/13/2015 03/25/2023 Tobacco dependence 09/13/2015 03/25/2023 Vitamin D deficiency 09/13/2015 03/25/2023 Resolved Problems Problem Noted Date Diagnosed Date Resolved Date Epigastric pain 03/25/2023 03/25/2023 03/25/2023 Gross hematuria 03/25/2023 03/25/2023 03/25/2023 Special screening for malign ant neoplasms, colon 03/25/2023 03/25/2023 03/25/2023 Palpitations 09/03/2017 03/25/2023 03/25/2023 Gastroesophageal reflux dise ase without esophagitis 09/13/2015 03/25/2023 03/25/2023 Encounters Date Type Department Care Team Description 05/26/2024 Telephone [facility] [address] [place] [address] Rachelle Smith, Recall Appt. 05/26/2024 Travel 03/11/2024 Orders Only GENERIC EXTERNAL DATA DEPARTMENT Provider, Generic External Data from Last 3 Months Immunizations Name Administration Dates Next Due Pneumococcal Conjugate PCV 20 12/11/2023 Pneumococcal Polysaccharide PPSV23 04/21/2014 Tdap 12/11/2023,12/15/2013 Social History Tobacco Use Types Packs/Day Years Used Date Smoking Tobacco: Every Day Cigarettes Passive Smoke Exposure: Current Smokeless Tobacco: Never Tobacco Cessation:Ready to Q uit: Not Asked; Counseling Given: Not Answered Depression Answer Date Recorded Patient Health Questionnaire-9 Score 1 08/12/2023 Patient Health Questionnaire-9 Score 1 08/12/2023 Last PHQ-9: Questionnaire Data Not on file 0 08/12/2023 Housing Stability Answer Date Recorded What is your housing situation today? I have rahul horowitz 08/12/[address] you li ve. Do you have problems with any of the following? I am not sure 08/12/2023 Food Insecurity Answer Date Recorded Within the past 12 months, y ou worried that your food would run out before you got money to buy more: Never True 08/12/2023 Within the past 12 months,th e food you bought just didn't last and you didn't have enough money to get more: Never True Transportation Answer Date Recorded In the past 12 months, has l ack of transportation kept you from medical appts, meetings, work or from getting things needed for daily living? No 08/12/2023 Utilities Answer Date Recorded In the past 12 months, has t he [email or web address], gas, oil or water company threatened to shut off services in your home? No 08/12/2023 Depression Answer Date Recorded Patient Health Questionnaire-2 Score 0 08/12/2023 Sex and Gender Information Value Date Recorded Sex Assigned at Male 01/27/2022 10:15 AM EDT Legal Sex Male 10:15 AM EDT Gender Identity Male 01/27/2022 10:15 AM EDT Sexual Orientation Straight 01/27/2022 10 :15 AM EDT Last Filed Vital Signs Vital Sign Reading Time Taken Comments Blood Pressure 138/82 02/04/2024 11:42 AM EST Pulse 78 02/04/2024 11:42 AM EST Temperature 36.6 ??C (97.8 ??F) 02/04/2024 11:[address] Respiratory Rate 18 02/04/2024 11:42 AM EST Oxygen Saturation 98% 08/12/2023 9:53 AM EDT Inhaled Oxygen Concentration - - Weight 65.6 kg (144 lb 9.6 oz) 02/04/2024 11:42 AM EST Height 172.7 cm (5' 8 ) 02/04/2024 11:42 AM EST Body Mass Index 21.99 02/04/2024 11:42 AM EST Plan of Treatment Upcoming Encounters Date Type Department Care Team (Late st Contact Info) Description 08/03/2024 10:00 AM EDT Office Visit [facility] [address] [place] [address] Rachelle Smith DO [address] [place] [address] Health Maintenance Due Date Last Done Comments CT Colonography 1968 FIT DNA/Cologuard 1970 FIT 1968 FOBT 1970 Sigmoidoscopy 1968 Alcohol/Substance Use Screening 1980 Hepatitis A Vaccines (1 of 2 - Risk 2-dose series) 10/26/1987 Hepatitis B Vaccines (1 of 3 - 19+ 3-dose series) 10/26/1987 Zoster Vaccines (1 of 2) 2018 COVID-19 Vaccine (3 - 2023-2 5 season) 2023 08/09/2020, 07/12/2020 Influenza Vaccine (#1) 2023 Depression Screening 08/11/2024 08/12/2023, 08/12/2023 SDOH Screening 08/11/2024 08/12/2023 Tobacco Screening 02/03/2025 02/04/2024 Lipid Panel 12/10/2028 12/11/2023, 07/30/2021 Colonoscopy 10/08/2032 10/08/2022, 02/04/2019 Colorectal Cancer Screening 10/08/2032 DTaP/Tdap/Td Vaccines (3 - T d or Tdap) 12/10/2033 12/11/2023, 12/15/2013 RSV Patients and Patients Aged 60 years or older (1 - 1-dose 75+ series) 10/26/2043 HIV Screening Completed 12/11/2023, 07/30/2021 Hepatitis C Screening Completed 12/11/2023 , 12/11/2023, 07/30/2021 Pneumococcal Vaccine: 50+ Years Completed 12/11/2023, 04/21/2014 HIB Vaccines Aged Out No longer eligi ble based on patient's age to complete this topic HPV Vaccines Aged Out No longer eligi ble based on patient's age to complete this topic IPV Vaccines Aged Out No longer eligi ble based on patient's age to complete this topic Meningococcal Vaccine Aged Out No matheus rosanna eligible based on patient's age to complete this topic RSV under 20 months Aged Out No longe r eligible based on patient's age to complete this topic Rotavirus Vaccines Aged Out No longer eligible based on patient's age to complete this topic Procedures Procedure Name Priority Date/Time Associated Diagnosis Comments HEMATOXYLIN AND EOSIN STAIN Routine 03/11/2024 9:15 AM EST HEPATITIS C AB W/REFL TO HCV RNA, QN, PCR Routine 12/11/2023 11:16 AM EDT Mood disorder (CMS/HCC) Tobacco dependence Allergic rhinitis, unspecified seasonality, unspecified trigger Chronic gastroesophageal reflux disease Nephrolithiasis Healthcare maintenance HIV 1/2 ANTIGEN/ANTIBODY, FOURTH GENERATION W/RFL Routine 12/11/2023 11:16 AM EDT Mood disorder (CMS/HCC) Tobacco dependence Allergic rhinitis, unspecified seasonality, unspecified trigger Chronic gastroesophageal reflux disease Nephrolithiasis Healthcare maintenance LIPID PANEL, STANDARD Routine 12/11/2023 11:16 AM EDT Mood disorder (CMS/HCC) Tobacco dependence Allergic rhinitis, unspecified seasonality, unspecified trigger Chronic gastroesophageal reflux disease Nephrolithiasis Healthcare maintenance HM COLONOSCOPY Routine 10/08/2022 2:42 PM EDT from Last 3 Months or Most Recently Relevant to Health Maintenance Results * Hematoxylin and Eosin Stain (03/11/2024 9:15 AM EST) 03/11/2024 9:15 AM EST 03/11/2024 10:27 AM EST [facility] - 03/14/2024 10:54 AM EST ----- ------- Name: Yan Chi ?Age/Sex: 53/M ? : 1970 Unit#: [id number] ?? Attend Dr: Eugenio Hays MD ?Re03/11/24 ?Status: DEP SDC ? Location: HO.SSS ?Disch: ? ----- ------- SPEC : [id number] ? RECD: 03/11/24 ? STATUS: ??SOUT ? REQ NUM: [id number] ? HUYEN: 03/11/24 ? SUBM DR: Eugenio Hays MD ? ENTERED: ??03/11/24 ?SP TYPE: Surgical ? OTHR DR: Rachelle Smith DO ? ORDERED: ??HE Stain/9, Gross Micro L4/3 ? Diagnosis ?? A. ??Terminal ileum, biopsy: ??Ileal mucosa with no specific change. ? B. ??Colon, at 45 cm, polyp: ??Tubular adenoma; negative for high-grade dysplasia and ?? carcinoma. ? C. ??Colon, sigmoid, biopsy: ??Colonic mucosa with no specific change. ?Clinical History Pre-Op Dx: ??Abnormal findings on diagnostic imaging Post-Op Dx: Colon polyp ?Microscopic Description Microscopic sections reviewed. ? Material Received ?? A. Bx's terminal ileum ?? B. Polyp at 45 cm ?? C. Sigmoid bx's ? Gross Description Received in three parts. Part A: ??Received in formalin labeled ?bx's terminal ileum (sic)? is a 0.4 cm savage-pink rectangular tissue fragment, submitted in toto in a cassette labeled A. Part B: ??Received in formalin labeled ?polyp at 45 cm? are 2 hyperemic and congested, savage- pink rectangular-papular tissue fragments measuring 0.3 and 0.45 cm, submitted in toto in a cassette labeled B. Part C: ??Received in formalin labeled ?sigmoid bx's? are 2 savage and savage-pink irregular tissue fragments measuring 0.25 cm, submitted in toto in a cassette labeled C. CEDS ? CONTINUED ON NEXT PAGE ----- ------- Name: Yan Chi ?Age/Sex: 53/M ? : 1970 Unit#: [id number] ?? Attend Dr: Eugenio Hays MD ?Re03/11/24 ?Status: DEP SDC ? Location: HO.SSS ?Disch: ? ----- ------- SPEC : [id number] ? RECD: 03/11/24 ? STATUS: ??SOUT ? REQ NUM: [id number] ? HUYEN: 03/11/24 ? SUBM DR: Eugenio Hays MD ? ENTERED: ??03/11/24 ?SP TYPE: Surgical ? OTHR DR: Rachelle Smith DO ? ORDERED: ??HE Stain/9, Gross Micro L4/3 ? Copies To: ?? Eugenio Hays MD ?? [facility] ?? [address] ?? [place] [id number] ?? [phone] ?? Rachelle Smith DO ?? [facility] ?? [address] ?? [place] [phone] ?? [phone] ----- ------- Signed (signature on file) Greta [place] 03/14/24 1054 ? ----- ------- ? END OF REPORT ? us Generic External Data Provider LAB BLOOD ORDERAB LES Final Result Performing Organization Address [facility] Co de Phone Number [facility] [address] [place] [address] [phone] * (ABNORMAL) Hepatitis C Antibody with Reflex to HCV, RNA, Quantitative, Real- Time PCR (12/11/2023 11:16 AM EDT) Pathologist [facility] Hepatitis C Antibody Reactive( A) Nonreactive [facility] Comment:Presumptive evidence of antibodies to HCV. Blood Venous blood specimen / Unknown 12/11/2023 11:16 AM EDT 12/11/2023 1:41 PM EDT us Rachelle Smith DO LAB BLOOD ORDERABLES Final R esult Performing Organization Address [facility] Co de Phone Number [facility] [address] [place] [address] [phone] * HIV-1/2 Antigen and Antibodies, Fourth Generation, with Reflexes (12/11/2023 11:16 AM EDT) Pathologist [facility] HIV AB/AG Nonreactive Nonreactive [facility] Comment:HIV-1 p24 Ag and/or HIV-1/HIV-2 Ab not detected.A test result that is nonreactive does not exclude thepossibility of exposure to or infection with HIV-1 and/orHIV-2. Nonreactive results in this assay for individualswith prior exposure to HIV-1 and/or HIV-2 may be due toantigen and antibody levels that are below the limit ofdetection of this assay.The [employer] HIV Ag/Ab Combo assay result andsupplemental assay results should be interpreted inconjunction with the patient's clinical presentation,history and other laboratory results. If the results areinconsistent with clinical evidence, additional testing issuggested to confirm the result. Blood Venous blood specimen / Unknown 12/11/2023 11:16 AM EDT 12/11/2023 1:41 PM EDT us Rachelle Smith DO LAB BLOOD ORDERABLES Final R esult [facility] [address] [place], [place] [phone] * (ABNORMAL) Lipid Panel, Standard (12/11/2023 11:16 AM EDT) Triglycerides 55 <150 mg/dL [facility] Comment:Desirable Triglyceri de: less than 150 mg/dLBorderline High Triglyceride 150-199 mg/dLHigh Triglyceride: 200-499 mg/dLVery High Triglyceride: greater than or equal to 5OO mg/dL Cholesterol 156 <200 mg/dL [facility] Comment:Desirable Cholestero l: less than 200 mg/dLBorderline High Cholesterol: 200-239 mg/dLHigh Cholesterol: greater than 239 mg/dL LDL Cholesterol Calculated 103(H) <100 mg/dL [facility] Comment:Desirable LDL: less than 100 mg/dLNear Optimal/Above Optimal LDL: 110- 129 mg/dLBorderline High LDL: 130-159 mg/dLHigh LDL: 160-189 mg/dLVery High LDL: greater than or equal to 190 mg/dL HDL Cholesterol 42 >40 mg/dL [facility] Comment:Desirable HDL: great er than 40 mg/dL Note: This HDL assay may give artificially low results in patients with liver disease. Blood Venous blood specimen / Unknown 12/11/2023 11:16 AM EDT 12/11/2023 1:41 PM EDT Rachelle Smith DO LAB BLOOD ORDERABLES Final R esult [facility] [address] [place] [phone] [phone] * Hm Colonoscopy (10/08/2022 2:42 PM EDT) Historical Provider MD HEALTH MAINTENANCE Final Result from Last 3 Months or Most Recently Relevant to Health Maintenance Insurance [facility] STANDARD Care Teams Pressroom Worker Relationship Specialty Start Date End Date Rachelle Smith DO [address] [place] [phone] PCP - General Family Medicine 03/30/18
--- OUTSIDE RECORDS SUMMARY | 2024-06-06 11:19 | XMS_ITS | Encounter Summary ---
Author Organization [employer] Address [address] [place] [address] Care Team Providers Care Stencil Maker Name Role Phone Rachelle Smith DO Primary Care Provider Encounter Details Date Type Department Care Team (Latest Contact Info) Description 05/26/2024 Travel Social History Tobacco Use Types Packs/Day Years Used Date Smoking Tobacco: Every Day Cigarettes Passive Smoke Exposure: Current Smokeless Tobacco: Never Depression Answer Date Recorded Patient Health Questionnaire-9 [...] the past 12 months, has t he electric, gas, oil or water company threatened to shut off services in your home? No 08/12/2023 Depression Answer Date Recorded Patient Health Questionnaire-2 Score 0 08/12/2023 Sex and Gender Information Value Date Recorded Sex Assigned at Male 01/27/2022 10:15 AM EDT Legal Sex Male 10:15 AM EDT Gender Identity Male 01/27/2022 10:15 AM EDT Sexual Orientation Straight 01/27/2022 10 :15 AM EDT documented as of this encounter Plan of Treatment Upcoming Encounters Date Type Department Care Team (Late st Contact Info) Description 08/03/2024 10:00 AM EDT Office Visit [facility] [address] [place] [address] Rachelle Smith DO [address] [place] [address] documented as of this encounter Visit Diagnoses Not on filedocumented in this encounter Additional Health Concerns Assessment Noted Time PHQ-9 Depression Total Score: 1 08/12/19 24 9:56 AM EDT documented as of this encounter Care Teams Stencil Maker Relationship Specialty Start Date End Date Rachelle Smith DO [address] [place] [address] PCP - General Family Medicine 03/30/18 documented as of this encounter
--- OUTSIDE RECORDS SUMMARY | 2024-06-06 11:19 | XMS_ITS | Encounter Summary ---
Author Organization [employer] [facility] Address [address] [facility] 7t h Floor [place] [id number] Care Team Providers Care Clay Temperer Name Role Phone Rachelle Smith DO Primary Care Provider Encounter Details Date Type Department Care Team (Late st Contact Info) Description 07/09/2023 Orders Only [facility] [address] [place] [phone] Provider, Historical, Social History Tobacco Use Types Packs/Day Years Used Date Smoking Tobacco: Every Day Cigarettes Passive Smoke Exposure: Current Sex and Gender Information Value Date Recorded Sex Assigned at Male 01/27/2022 10:15 AM EDT Legal Sex Male 10:15 AM EDT Gender Identity Male 01/27/2022 10:15 AM EDT Sexual Orientation Straight 01/27/2022 10 :15 AM EDT documented as of this encounter Plan of Treatment Upcoming Encounters Date Type Department Care Team (Late Contact Info) Description 08/03/2024 10:00 AM EDT Office Visit [facility] [address] [place] [address] Rachelle Smith DO [address] [place] [phone] documented as of this encounter Procedures Procedure Name Priority Date/Time Associated Diagnosis Comments HM COLONOSCOPY Routine 10/08/2022 2:42 PM EDT HM COLONOSCOPY Routine 02/04/2019 2:40 PM EST documented in this encounter Results * Hm Colonoscopy (10/08/2022 2:42 PM EDT) Historical Provider HEALTH MAINTENANCE Final Result * Hm Colonoscopy (02/04/2019 2:40 PM EST) us Historical Provider MD HEALTH MAINTENANCE Final Result documented in this encounter Visit Diagnoses Not on filedocumented in this encounter Care Teams Clay Temperer Relationship Specialty Start Date End Date Rachelle Smith DO [address] [place] [address] PCP - General Family Medicine 03/30/18 documented as of this encounter
--- OUTSIDE RECORDS SUMMARY | 2024-06-06 11:19 | XMS_ITS ---
Author Organization [facility] Address [address] [place] [phone] Care Team Providers Care Fuel Cell Builder Name Role Phone Rachelle Smith M.D. Primary Care Provider Marni vailable Saúl Vance, Eugenio Nix [phone] REASON FOR VISIT bowel prep Medications Medication SIG (Take, Route, Frequency, Duration) Notes [...] Active Encounters Encounter Location Date Provider Diagnosis [facility] [address] [facility] [address] [place] [phone] 02/10/2024 Eugenio Hays Jr Plan Of Treatment Medication Medication Name Sig Start Date Stop Date Notes MiraLax (colon prep) 8.3 oun ce ((238) grams mixed with Gatorade or Crystal Light orally begin at 5:00 p.m. the day before the procedure for 1 day 02/10/2024 Dulcolax (colon prep) 5 MG take at 3:00 p.m and 7:00p.m. Orally two tablets twice a day for one day for 1 day 02/10/2024 Progress Notes * BRITTNEY VARGASOB:1970 (53 yo M)Acc No.[id number]:02/10/2024 Patient:DANK BRISENO :1970???Age:53 Y???Sex:Male Address:[address] [place] [address] DEYVI [address] [facility], [place] [address] * Refills? Start MiraLax (colon prep), 8.3 ounce ((238) grams, orally, 1 container, mixed with Gatorade or Crystal Light, begin at 5:00 p.m. the day before the procedure, 1 day, Refills=no refills Start Dulcolax (colon prep) Tablet Delayed Release, 5 MG, Orally, 4, take at 3:00 p.m and 7:00p.m., two tablets twice a day for one day, 1 day * true * Date:? Generated for Nic gomez/Tanmay/Billyitting on:?06/06/2024 11:19 AM EDT
--- OUTSIDE RECORDS SUMMARY | 2024-06-06 11:19 | XMS_ITS | Encounter Summary ---
Author Organization [employer] Address [address] [facility] 7t h Floor [place] [id number] Care Team Providers Care Data Processing Systems Consultant Name Role Phone Rachelle Smith DO Primary Care Provider + [phone] Reason for Visit * Reason Onset Date Comments Recall Appt. 05/26/2024 Encounter Details Date Type Department Care Team ([facility] Contact Info) Description 05/26/2024 Telephone [facility] [address] [place] [address] Rachelle Smith DO [address] [place] [address] Recall Appt. Social History Tobacco Use Types Packs/Day Years [...] AM EDT documented as of this encounter Miscellaneous Notes * Telephone Encounter - Analy Woodson [place] - 05/26/2024 3:58 PM EST .Telephone call to patient to schedule the following recall: Visit type: Follow up Appointment notes: GI/Tobaccp Patient agree to appointment on 08/03/2024 at 10:00 AM with Georgina. documented in this encounter Plan of Treatment Upcoming Encounters Date Type Department Care Team (Late st Contact Info) Description 08/03/2024 10:00 AM EDT Office Visit [facility] [address] [place] [address] Rachelle Smith DO [address] [place] [address] documented as of this encounter Visit Diagnoses Not on filedocumented in this encounter Additional Health Concerns Assessment Noted Time PHQ-9 Depression Total Score: 1 08/12/19 24 9:56 AM EDT documented as of this encounter Care Teams Data Processing Systems Consultant Relationship Specialty Start Date End Date Rachelle Smith DO [address] [place] [address] PCP - General Family Medicine 03/30/18 documented as of this encounter
== END 2024-06-06 10:10 | disposition home or self-care (01) ==
LOC: HO.CT 10:09
PROVIDERS: PCP Family Medicine; Visit Provider Physician Assistant Medical
DX: Z12.2 Encounter for screening for malignant neoplasm of respiratory organs (principal); F17.210 Nicotine dependence, cigarettes, uncomplicated
CPT/HCPCS: 71271

== ENCOUNTER → 2024-06-06 10:10 | Outpatient (BNV) | payer MEDICAID, SELFPAY | PROVIDERS: PCP Family Medicine; Visit Provider Radiology Diagnostic Radiology | DX: F17.210 Nicotine dependence, cigarettes, uncomplicated (principal) | CPT/HCPCS: 71271 ==

== ENCOUNTER 2024-11-18 08:19 | Emergency (ER) | payer MEDICAID, SELFPAY ==
[2024-11-18 08:23] VITALS: BP 144/83; PULSE 83; RESP 16; TEMP 36.4; O2SAT 98; BMI 22.5
--- NOTE | 2024-11-18 08:35 | PC.NURSE ---
Pt with reddened sclera right eye states yellow drainage from it overnight. No drainage visible at this time. Eye is watery and painful. No other complaints Denies visual disturbance.
--- NOTE | 2024-11-18 08:49 | ED.GENADULT ---
HPI - General Adult General Chief complaint: Eye Problems Stated complaint: FB R Eye Time Seen by Provider: 11/18/24 08:49 History of Present Illness ED Provider: Chris FRANCIS narrative: The patient is a 54-year-old male who says that he was at his window yesterday when he felt as though something blew into his right eye. He does not know what the material might have been. He thinks it might has been sand or something else carried by the wind. He developed worsening discomfort in the eye throughout the day. He had a sense of a foreign body in his eye. He continued to feel discomfort and has eye redness this morning and comes to the emergency room for evaluation. The patient does not use contact lenses. Related Data Home Medications ?Medication ?Instructions ?Recorded ?Confirmed fluoxetine 40 mg capsule 40 mg PO BEDTIME 01/17/21 03/09/24 fluticasone propionate 50 2 spray intranasal DAILY 01/17/21 03/09/24 mcg/actuation nasal spray,suspension risperidone 3 mg tablet 3 mg PO BEDTIME 01/17/21 03/09/24 cetirizine 10 mg tablet 10 mg PO DAILY 08/20/21 cholecalciferol (vitamin D3) 50 50 mcg PO DAILY 08/20/21 mcg (2,000 unit) capsule famotidine 20 mg tablet 20 mg PO DAILY 03/09/24 03/09/24 Previous Rx's ?Medication ?Instructions ?Recorded docusate sodium 100 mg capsule 100 mg PO BID #30 caps 01/19/21 (Colace) acetaminophen 500 mg capsule 1,000 mg (2 x 500 mg) PO Q8H PRN 11/18/24 fever or pain #14 caps erythromycin 5 mg/gram (0.5 %) eye 0.5 inch ophthalmic-Right QID #3.5 11/18/24 ointment grams ibuprofen 400 mg tablet 400 mg PO Q6H PRN pain #14 tabs 11/18/24 Allergies Allergy/AdvReac Type Severity Reaction Status Date / Time No Known Allergies Allergy Verified 11/18/24 08:23 Review of Systems Review of Systems: Yes all other systems are reviewed and are negative [facility] Past Medical History Medical History (Updated 11/18/24 @ 09:30 by René Perez MD) Bipolar disorder Depression History of heroin abuse Hx of hepatitis C Atypical chest pain Gross hematuria Back pain GERD (gastroesophageal reflux disease) Tubular adenoma of colon Nicotine dependence, cigarettes, uncomplicated Surgical History (Updated 04/18/24 @ 11:57 by Beth Negron PA-C) History of liver biopsy Hx of cystoscopy History of colonoscopy Hx of esophagogastroduodenoscopy Hx of elbow surgery Family History Family History Father Prostate cancer Mother Cancer Social History Social History (Updated 03/09/24 @ 10:50 by Dominique Cazares RN) Are you a primary patient care associate to a significant other at home: No Do you presently have visiting nurse or other home services: No Alcohol intake: former Patient Tobacco Use Status: Current everyday Tobacco user Tobacco use type: Cigarette Cigarette Packs Per Day: 1 Cigarettes Per Day: 12 Smoked in Last 30 Days: No Use of substances other than those prescribed or required for medical reasons: No Advance Directives: No Advance Directives Information Provided: Yes Physical Exam ED Vital Signs: Vital Signs - 24 hr 11/18/24 08:23 11/18/24 09:37 Temperature 97.5 F 98.7 F Pulse Rate 83 65 Respiratory Rate 16 15 Blood Pressure 144/83 H 135/83 Pulse Oximetry 98 100 Oxygen Delivery Method Room Air Room Air BMI result Body Mass Index 22.5 Const Other: The patient is a thin 54-year-old male who was awake and alert. He has obvious right eye redness. Orientation/consciousness: patient oriented x3 HENMT Other: Face is symmetrical, mucous membranes moist. Eyes Other: Pupils are round equal. The conjunctiva of the right eye is injected. There was no obvious gross abnormality other than the injection. With slit-lamp examination the anterior chamber seemed clear although there were some subtle findings of possible corneal irregularities. With fluorescein staining there were obvious vertically oriented very thin corneal abrasions suggestive of a foreign body under the upper eyelid. With eyelid eversion I did not visualize any foreign body in the middle of the eyelid. There was a possible small foreign body at the medial canthus. I used a sterile swab to attempt to remove what I thought was a possible small foreign body at the medial canthus. I did not visualize any foreign body on the swab after the procedure but when I re-examined the upper eye that I did not see anything that I thought was any persistent foreign body in the eyelid itself or at the medial canthus. Neck Neck: Yes normal visual inspection and Yes full ROM Resp Effort & Inspection: normal respiratory effort Skin Other: The skin is dry and unremarkable Neuro General: patient oriented x3, gait normal, tone normal and no focal motor deficits Medications Administered Discontinued Medications Generic Name Dose Route Start Last Admin Trade Name Carlos PRN Reason Stop Dose Admin Acetaminophen 975 mg 11/18/24 09:24 11/18/24 09:41 Acetaminophen 325 Mg Tablet PO 11/18/24 09:25 975 mg ONCE ONE Administration Erythromycin 1 cm 11/18/24 09:20 11/18/24 09:41 Erythromycin Base 0.5% Oph Oin 1 Gm Tube EYE-RIGHT 11/18/24 09:21 1 cm ONCE ONE Administration Ibuprofen 600 mg 11/18/24 09:20 11/18/24 09:41 Ibuprofen 600 Mg Tablet PO 11/18/24 09:21 600 mg ONCE ONE Administration Medical Decision Making Medical Decision Making MDM Narrative: The patient is a 54-year-old male who presents with right eye redness and irritation. He thinks he got something in his right eye yesterday. He does not use contact lenses. On gross exam he has some injection to the conjunctiva of the right eye but the corneal looked clear. With fluorescein staining and use of the slit-lamp I was able to see very subtle vertically oriented corneal abrasions suggestive of a foreign body under the upper eyelid. With eyelid eversion I saw no foreign body in the midportion of the eyelid but I thought there might has been some foreign material at the medial canthus which I attempted to remove with a sterile swab. I was not able to visualize a foreign body on the sterile swab afterwards but I no longer saw anything in the medial canthus or elsewhere in the upper eyelid. My assumption is that I either removed foreign body or that the foreign body had already fallen out of the eyelid. At this point I think the patient may be discharged with erythromycin ointment. Ibuprofen and acetaminophen as needed for pain. He is given the contact information for the ophthalmology office for follow up. He should return if worse. Discharge Plan Discharge Clinical Impression: Corneal abrasion, right, Foreign body of eyelid, right Patient Disposition: Home, Self-Care Instructions: Corneal Abrasion (ED) Additional Instructions: The findings of your exam suggest that you had a foreign body under your right upper eyelid. I believe that this was causing multiple scratches to the surface of your eye (your cornea). At this point I do not believe the foreign body is there anymore. Please apply the antibiotic ointment (the erythromycin ointment) 4 times a day for the next several days. You may use ibuprofen and acetaminophen as needed for discomfort. Please contact the ophthalmology office (Dr. Mascorro's office) today to see if you can arrange a follow up appointment on Thursday for a recheck. Return to the emergency room if significantly worse before then. Prescriptions: New ibuprofen 400 mg tablet 400 mg PO Q6H PRN (Reason: pain) Qty: 14 0RF acetaminophen 500 mg capsule 1,000 mg PO Q8H PRN (Reason: fever or pain) Qty: 14 0RF erythromycin 5 mg/gram (0.5 %) ointment 0.5 inch ophthalmic-Right QID Qty: 3.5 0RF No Action docusate sodium [Colace] 100 mg capsule 100 mg PO BID Qty: 30 0RF famotidine 20 mg Tablet 20 mg PO DAILY risperidone 3 mg tablet 3 mg PO BEDTIME fluoxetine 40 mg capsule 40 mg PO BEDTIME fluticasone propionate 50 mcg/actuation spray,suspension 2 spray intranasal DAILY cholecalciferol (vitamin D3) 50 mcg (2,000 unit) capsule 50 mcg PO DAILY cetirizine 10 mg tablet 10 mg PO DAILY Referrals: Compa Mascorro [Physician, Ophthalmology] Referral Note: Vertical scratches on cornea, may have removed a lid foreign body Print Language: Portuguese
--- OUTSIDE RECORDS SUMMARY | 2024-11-18 09:01 | XMS_ITS | Patient Health Record ---
Author Organization [facility] Address [address] [place] [address] Care Team Providers Care Locker Room Supervisor Name Role Phone Sarah Mayberry, Rachelle Primary Care Provider Marni vailable Eugenio Hays Jr Unavailable [phone] Allergies No Known Allergies Results Component Value Reference Range Notes Pathology Reviewed date:03/15/2024 04:26:32 PM Interpretation: Performing Lab:[facility], [address] [place] [phone] Notes/Report: Reason For Referral Referring Provider First Name Rachelle Referring Provider Last Name Sarah Referred Organization [facility] Referred Provider Eugenio Hays Jr Referred Address [address] [facility] [address],[place], [place],[address], Referred Provider Specialty Gastroentero logy General Notes Latonya Chanel 024 04:08:27 PM EST > requested a [facility] referral from [facility] for visit with Dr. Hays on 02-10-2024 Referral Priority Routine Medications Medication SIG (Take, Route, Frequency, Duration) [...] Once a day for 30 day(s) Active Immunizations Vaccine Route Administration Date Status Comme nts Influenza Unknown 06/09/2018 Refused Influenza Unknown 12/15/2018 Refused Influenza Unknown 09/10/2022 Refused Influenza Unknown 02/10/2024 Refused Social History Tobacco Use: Social History Observation Description Date Details (start date - stop date) Current Smoker NA - NA Tobacco Use/Smoking Question Answer Notes Patient is [...] ast year? No Points 0 Interpretation Negative Problems Problem Type SNOMED Code ICD Code Onset Dates Problem Status W/U Status Risk Notes Problem 53633907 Epigastric pain (R10.13) Active confirmed Problem 993626729 Special screenin g for malignant neoplasms, colon (Z12.11) Active confirmed Problem History of polyp of colon (situation) (344297904) Personal history of colonic polyps (Z86.010) Active confirmed Problem 477769392 Abnormal CT scan , gastrointestinal tract (R93.3) Active confirmed Problem 460365976 Gastroesophageal reflux disease without esophagitis (K21.9) Active confirmed Problem 481323428 Gastroesophageal reflux disease with esophagitis without hemorrhage (K21.00) Active confirmed Vital Signs Temperature 98.2 degrees Fahrenheit 02/10/2024 Blood pressure diastolic 00 mm Hg 02/10/2024 Height 68 in 02/10/2024 Blood pressure systolic 000 mm Hg 02/10/2024 Weight 143 lbs 02/10/2024 BMI 21.74 kg/m2 02/10/2024 Encounters Encounter Location Date Provider Diagnosis [facility] [address] [place], [place] [id number] 03/11/2024 Eugenio Hays Jr Colon polyps K63.5 and Abn findings-GI tract R93.3 [facility] [address] [place] [phone] 02/10/20[address] scan, gastrointestinal tract R93.3 [facility] [address] [place] [phone] 02/10/2024 Eugenio Hays Jr [facility] [address] [place] [phone] 03/15/2024 Eugenio Hays Jr Assessments Encounter Date Diagnosis (ICD Code) Assessment Notes Treatment Notes Treatment Clinical Notes Section Notes 03/11/2024 Colon polyps (ICD-10 - K63.5) 03/11/2024 Abn findings-GI tract (ICD-10 - R93.3) 02/10/[address] scan, gastrointestinal tract (ICD-10 - R93.3) Colonoscopy material was printed We discussed his symptoms in detail. We discussed the CT findings and reviewed his medical record in detail. Clinically this appears most consistent with an acute infectious ileitis, however we did recommend evaluation with colonoscopy given the abnormal CT scan findings. This will be scheduled at his convenience. He is aware of risks and benefits and agrees to proceed. Today's visit was 30 minutes. Plan Of Treatment Future Test Test Name Order Date UPPER GI ENDOSCOPY 12/24/2016 COLONOSCOPY 12/15/2018 COLONOSCOPY 09/10/2022 COLONOSCOPY 02/10/2024 Insurance Providers Payer Name Payer Address Payer Phone Subscriber Number Group Number Insured Name Patient Relationship to Insured Coverage Start Date Coverage End Date [employer] [address] [place] [address] [id number] DANK VARGAS Self - patient is the insured Medical (General) History Medical History History ICD Code Gastroesophageal reflux [...]
--- OUTSIDE RECORDS SUMMARY | 2024-11-18 09:01 | XMS_ITS | Clinical Summary ---
Author Organization [facility] Address [address] [place] [address] Phone Care Team Providers Care Desktop Publishing Associate Name Role Phone Rachelle Smith DO Primary Care Provider Romelia lacy Allergies No known active allergies Medications FLUoxetine [...] of 3 - 19+ 3-dose series) 10/25 Colorectal Cancer Screening: Annual FOBT 2017 Colorectal Cancer Screening: Colonoscopy 2017 Colorectal Cancer Screening: Sigmoidoscopy 2017 Pneumococcal Vaccine: 50+ Years (2 of 2 - PCV) 019 04/21/2014 Influenza Vaccine (#1) 2024 Pneumococcal Vaccine: Peds ( 0 to 5 Years) and At-Risk Patients (6 to 49 Years) Discontinued 04/21/2014 Insurance Medicaid [place] Medicaid [place] Care Teams Desktop Publishing Associate Relationship Specialty Start Date End Date Rachelle Smith DO PCP - General Family Medicine 02/12/22
--- OUTSIDE RECORDS SUMMARY | 2024-11-18 09:01 | XMS_ITS | Clinical Summary ---
Author Organization [employer] Address [address] [place] [address] Care Team Providers Care Brood Station Manager Name Role Phone Rachelle Smith DO Primary Care Provider Allergies Active Allergy Reactions Criticality Noted Date [...] 01/31/2023 Active cholecalciferol (Vitamin D-3) 50 MCG (2000 UT) capsule 50 mcg. 08/13/2021 Active FLUoxetine [...] Take 10 mg by mouth. 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 03/25/2023 Chronic gastroesophageal reflux disease 03/25/20 23 03/25/2023 Allergic rhinitis 09/13/2015 03/25/2023 Nephrolithiasis 09/13/2015 03/25/2023 [...] dise ase without esophagitis 09/13/2015 03/25/2023 03/25/2023 Immunizations Immunization Administration Dates Next Due Pneumococcal Conjugate PCV 20 12/11/2023 Pneumococcal Polysaccharide PPSV23 04/21/2014 Tdap 12/11/2023,12/15/2013 Social History Tobacco Use Types Packs/Day Years Used Date Smoking Tobacco: Every Day Cigarettes Passive Smoke Exposure: Current Smokeless Tobacco: Never Tobacco Cessation:Ready to Q uit: Not Asked; Counseling Given: Not Answered Alcohol Use Standard Drinks/Week Comments Not Currently 0 (1 standard drink = 0.6 oz pur e alcohol) Social Depression Answer Date Recorded Patient Health Questionnaire-9 Score 3 08/03/2024 Patient Health Questionnaire-9 Score 3 08/03/2024 Last PHQ-9: Questionnaire Data Not on file 0 08/03/2024 Housing Stability Answer Date Recorded What is your housing situation today? I have rahulsavage horowitz 08/03/[address] you li ve. Do you have problems with any of the following? None of the above 08/03/2024 Food Insecurity Answer Date Recorded Within the past 12 months, y ou worried that your food would run out before you got money to buy more: Sometimes True 2024 Within the past 12 months,th e food you bought just didn't last and you didn't have enough money to get more: Sometimes True 08/03/2024 Transportation Answer Date Recorded In the past 12 months, has l ack of transportation kept you from medical appts, meetings, work or from getting things needed for daily living? No 08/12/2023 Utilities Answer Date Recorded In the past 12 months, has t he electric, gas, oil or water company threatened to shut off services in your home? Yes 08/03/2024 Depression Answer Date Recorded Patient Health Questionnaire-2 Score 1 08/03/2024 Internet Access Answer Date Recorded Internet Access Q1 Yes 08/03/2024 Internet Access Q2 Not on file 08/03/2024 Sex and Gender Information Value Date Recorded Sex Assigned at Male 01/27/2022 10:15 AM EDT Legal Sex Male 10:15 AM EDT Gender Identity Male 01/27/2022 10:15 AM EDT Sexual Orientation Straight 01/27/2022 10 :15 AM EDT Last Filed Vital Signs Vital Sign Reading Time Taken Comments Blood Pressure 130/70 08/03/2024 10:20 AM EDT Pulse 64 08/03/2024 10:20 AM EDT Temperature 36.8 C (98.3 F) 08/03/2024 10:20 AM EDT Respiratory Rate 21 08/03/2024 10:20 AM EDT Oxygen Saturation 98% 08/03/2024 10:20 AM EDT Inhaled Oxygen Concentration - - Weight 62.4 kg (137 lb 8 oz) 08/03/2024 10:20 AM EDT Height 172.7 cm (5' 8 ) 08/03/2024 10:20 AM EDT Body Mass Index 20.91 08/03/2024 10:20 AM EDT Plan of Treatment Health Maintenance Due Date Last Done Comments CT Colonography 1968 FIT DNA/Cologuard 1968 FIT 1968 FOBT 1968 Sigmoidoscopy 1968 Hepatitis B Vaccines (1 of 3 - 19+ 3-dose series) 10/26/1987 Zoster Vaccines (1 of 2) 2018 COVID-19 Vaccine (3 - 2023-2 5 season) 2023 08/09/2020, 07/12/2020 Influenza Vaccine (#1) 2024 Alcohol/Substance Use Screening 08/03/2025 08/03/2024 Depression Screening 08/03/2025 08/03/2024, 08/03/2024 Disability Screening 08/03/2025 08/03/2024 SDOH Screening 08/03/2025 08/03/2024 Tobacco Screening 08/03/2025 08/03/2024 Lipid Panel 12/10/2028 12/11/2023, 07/30/2021 Colonoscopy 10/08/2032 [...] on patient's age to complete this topic Hepatitis A Vaccines Aged Out No long er eligible based on patient's age to complete this topic IPV Vaccines Aged Out No longer eligi ble based on patient's age to complete this topic Meningococcal B Vaccine Aged Out No l onger eligible based on patient's age to complete [...] Procedure Name Priority Date/Time Associated Diagnosis Comments HEPATITIS C AB W/REFL TO HCV RNA, [...] Recently Relevant to Health Maintenance Results * (ABNORMAL) Hepatitis C Antibody with Reflex to HCV, RNA, Quantitative, Real- Time PCR (12/11/2023 11:16 AM EDT) Hepatitis C Antibody Reactive( A) Nonreactive [facility] Comment:Presumptive evidence of antibodies to HCV. Blood Venous blood specimen / Unknown 12/11/2023 11:16 AM EDT 12/11/2023 1:41 PM EDT Rachelle Smith DO LAB BLOOD ORDERABLES Final R esult [facility] [address] [place] [phone] * HIV-1/2 Antigen and Antibodies, Fourth Generation, with Reflexes (12/11/2023 11:16 AM EDT) HIV AB/AG Nonreactive Nonreactive [facility] Comment:HIV-1 p24 Ag and/or HIV-1/HIV-2 Ab not detected.A test result that is nonreactive does not exclude thepossibility of exposure to or infection with HIV-1 and/orHIV-2. Nonreactive results in this assay for individualswith prior exposure to HIV-1 and/or HIV-2 may be due toantigen and antibody levels that are below the limit ofdetection of this assay.The [employer] HIV Ag/Ab Combo assay result andsupplemental assay results should be interpreted inconjunction with the patient's clinical presentation,history and other laboratory results. If the results areinconsistent with clinical evidence, additional testing issuggested to confirm the result. Blood Venous blood specimen / Unknown 12/11/2023 11:16 AM EDT 12/11/2023 1:41 PM EDT Rachelle Smith DO LAB BLOOD ORDERABLES Final R esult Performing Organization Address [facility] Co de Phone Number [facility] [address] [place] [address] [phone] * (ABNORMAL) Lipid Panel, Standard (12/11/2023 11:16 AM EDT) Triglycerides 55 <150 mg/dL [facility] Comment:Desirable Triglyceri de: less than 150 mg/dLBorderline High Triglyceride 150-199 mg/dLHigh Triglyceride: 200-499 mg/dLVery High Triglyceride: greater than or equal to 5OO mg/dL Cholesterol 156 <200 mg/dL [facility] Comment:Desirable Cholestero l: less than 200 mg/dLBorderline High Cholesterol: 200-239 mg/dLHigh Cholesterol: greater than 239 mg/dL LDL Cholesterol Calculated 103(H) <100 mg/dL [facility] Comment:Desirable LDL: less than 100 mg/dLNear Optimal/Above Optimal LDL: 110- 129 mg/dLBorderline High LDL: 130-159 mg/dLHigh LDL: 160-189 mg/dLVery High LDL: greater than or equal to 190 mg/dL HDL Cholesterol 42 >40 mg/dL [facility] Comment:Desirable HDL: great er than 40 mg/dL Note: This HDL assay may give artificially low results in patients with liver disease. Blood Venous blood specimen / Unknown 12/11/2023 11:16 AM EDT 12/11/2023 1:41 PM EDT Rachelle Smith DO LAB BLOOD ORDERABLES Final R esult Performing Organization Address City/[facility]/ZIP Co de Phone Number [facility] [address] [place] [address] [phone] * Hm Colonoscopy (10/08/2022 2:42 PM EDT) us Historical Provider HEALTH MAINTENANCE Final Result from Last 3 Months or Most Recently Relevant to Health Maintenance Insurance [facility] Care Teams Brood Station Manager Relationship Specialty Start Date End Date Rachelle Smith DO [address] [place] [phone] PCP - General Family Medicine 03/30/18
[2024-11-18 09:37] VITALS: BP 135/83; PULSE 65; RESP 15; TEMP 37.1; O2SAT 100
[2024-11-18] MEDS: Erythromycin Base 0.5% Oph Oin 1 GM TUBE 1 CM EYE-RIGHT (09:41)
[2024-11-18 09:57] VITALS: BP 135/83; PULSE 65; RESP 15; TEMP 37.1; O2SAT 100
== END 2024-11-18 09:58 | disposition home or self-care (01) ==
PROVIDERS: Emergency Provider Emergency Medicine; PCP Family Medicine
DX: T15.01XA Foreign body in cornea, right eye, initial encounter (principal)
CPT/HCPCS: 99283; 99284